=== PATIENT | female | born 1955 | race Caucasian/White ===

== ENCOUNTER 2018-05-07 15:10 | Outpatient (CLI) | payer BC ==
--- NOTE | 2018-05-07 15:39 | RAD ---
LEFT FEMUR: 05/07/18 AP and lateral views were obtained. A total of four images. INDICATIONS: Fall with injury to left lower extremity. There are degenerative changes at the hip. There is joint narrowing and mild spurring from the femora l head. No acute fracture identified. IMPRESSION: No acute fracture. POS: [facility]
--- NOTE | 2018-05-07 15:40 | RAD ---
F2 views left hip. HISTORY: Fall one month ago with left hip pain. AP and frog leg views left hip obtained. Left hip osteoarthritic changes seen. No evidence of acute fractures or bony lesions seen. IMPRESSION: Left hip osteoarthritis.
== END 2018-05-07 15:11 | disposition home or self-care (01) ==
LOC: SCSRAD 15:10
PROVIDERS: ATTEND Family Medicine
DX: M25.552 Pain in left hip (principal); M79.652 Pain in left thigh; M16.12 Unilateral primary osteoarthritis, left hip

== ENCOUNTER 2018-08-12 09:36 | Outpatient (CLI) | payer BC ==
--- NOTE | 2018-08-12 09:51 | RAD ---
RADIOGRAPH CHEST 2 VIEWS: DATE: 08/12/2018 HISTORY: 63-year-old female with dyspnea FINDINGS: There is no airspace density, pulmonary edema, pleural effusion, pneumothorax, or cardiomegaly. IMPRESSION: No acute cardiopulmonary findings.
== END 2018-08-12 09:37 | disposition home or self-care (01) ==
LOC: RAD 09:36
PROVIDERS: ATTEND Internal Medicine Critical Care Medicine
DX: R06.00 Dyspnea, unspecified (principal)
CPT/HCPCS: 71046

== ENCOUNTER 2018-08-18 15:00 | Outpatient (CLI) | payer BC | END 2018-08-18 15:01 | disposition home or self-care (01) | LOC: SLEEPLAB 15:00 | PROVIDERS: ATTEND Family Medicine | DX: F51.9 Sleep disorder not due to a substance or known physiological condition, unspecified (principal); G47.33 Obstructive sleep apnea (adult) (pediatric); G47.9 Sleep disorder, unspecified; R53.83 Other fatigue; K21.9 Gastro-esophageal reflux disease without esophagitis; J44.9 Chronic obstructive pulmonary disease, unspecified; E03.9 Hypothyroidism, unspecified; F32.9 Major depressive disorder, single episode, unspecified; R06.83 Snoring; G47.00 Insomnia, unspecified; R09.02 Hypoxemia; E66.9 Obesity, unspecified; Z68.37 Body mass index [BMI] 37.0-37.9, adult | CPT/HCPCS: 95806 ==

== ENCOUNTER 2019-04-16 07:50 | Outpatient (CLI) | payer MEDICARE ==
[2019-04-16 10:17] LABS: #Eosinphils 0.1 thou/uL (0.0-0.7); #Lymphocytes 1.9 thou/uL (1.20-3.40); #Neutrophils 4.8 thou/uL (1.40-6.50); %Basophils 0.4 % (0.0-1.0); %Eosinophils 1.2 % (0.0-10.0); %Lymphocytes 24.9 % (21.0-51.0); %Monocytes 12.1 % (0.0-10.0); %Neutrophils 61.4 % (42.0-75.0); Hemoglobin 13.7 g/dL (12.0-16.0); Mean Corpuscular HGB CONC 32.9 g/dL (32.0-36.0); Mean Corpuscular Volume 97.4 fL (78.0-98.0); Mean Platelet Volume 7.2 fL (7.4-10.4); Platelet Count 282 thou/uL (130-400); RBC Distribution Width 12.1 % (11.5-14.5); Red Blood Cell (RBC) Count 4.28 mill/uL (4.20-5.40); White Blood Cell (WBC) Count 7.8 thou/uL (4.8-10.8)
[2019-04-16 10:30] LABS: PTT 31.2 SEC (22.9-36.1); Prothrombin Time 12.9 SEC (12.0-14.7)
[2019-04-16 10:39] LABS: Anion Gap 10 mmol/L (10-20); BUN (Urea Nitrogen) 14 mg/dL (9.8-20.1); Calc. Creatinine Clearance 0 mL/min (70-130); Calcium 10.4 mg/dL (7.8-10.44); Carbon Dioxide 31 mmol/L (23-31); Chloride 102 mmol/L (98-107); Estimated GFR-MDRD Greater than 90; Glucose 89 mg/dL (80-115); Potassium 4.3 mmol/L (3.5-5.1); Sodium 139 mmol/L (136-145)
[2019-04-16 12:39] LABS: Bilirubin Negative (Negative); Blood, Urine Negative (Negative); Clarity Turbid (Clear); Glucose, Urine (Dipstick) Normal (Negative); Leukocyte Negative Leu/uL (Negative); Nitrite Negative (Negative); Protein, Urine (Dipstick) Negative (Neg-Trace); RBC/HPF 0-3 HPF (0-3); Squamous Epithelial 0-3 HPF (0-3); Urobilinogen Normal mg/dL (Less than 2); WBC/HPF 0-3 HPF (0-3)
[2019-04-16 12:51] LABS: Bacteria/HPF None Seen HPF (None Seen)
== END 2019-04-16 07:51 | disposition home or self-care (01) ==
LOC: LABBT 07:50
PROVIDERS: ATTEND Orthopaedic Surgery
DX: Z01.812 Encounter for preprocedural laboratory examination (principal); M16.12 Unilateral primary osteoarthritis, left hip
CPT/HCPCS: 80048; 81001; 85025; 85610; 85730; 87081

== ENCOUNTER 2019-04-16 08:30 | Inpatient (IN) | payer MEDICARE ==
--- NOTE | 2019-04-17 10:40 | HP ---
HISTORY OF PRESENT ILLNESS: The patient is a 63-year-old female who has had progressive problems with her left hip, which has been present for several years, but it has become much worse over the past 6 to 12 months. The pain has progressed to almost the point of incapacitation which required use of a wheelchair. This has also caused her to fall several times. It is interfering with day-to-day activities including walking, getting dressed, sleeping and trying to remain independent. PAST MEDICAL HISTORY: The patient also has degenerative arthritis of the right knee, which is currently managed conservatively. She has a history of thyroid replacement, hyperlipidemia, depression, previous neck surgery. CURRENT MEDICATIONS: Include 1. Ekaterina-C. 2. Multivitamins. 3. Calcium. 4. Omeprazole. 5. Spiriva inhaler. 6. Wellbutrin. 7. Synthroid. 8. Vytorin. 9. Meloxicam. 10. Tramadol. 11. Hydrocodone. ALLERGIES: TO CODEINE. SHE HAS OBTAINED CARDIAC CLEARANCE FROM DR. MARCIA MONTALVO. FAMILY HISTORY: Otherwise unremarkable. SOCIAL HISTORY: Otherwise unremarkable. REVIEW OF SYSTEMS: Otherwise unremarkable. PHYSICAL EXAMINATION: GENERAL: Reveals a healthy female. HEENT: Unremarkable. NECK: Supple. CHEST: Clear. HEART: Regular rate, rhythm. ABDOMEN: Soft, nontender. PELVIC: Deferred. RECTAL: Deferred. BREASTS: Deferred. EXTREMITIES: Pertinent findings related to the left hip. Left leg is 1 cm short. There is tenderness in the anterior left hip. There is decreased range of motion and groin pain with internal rotation. There is a left antalgic gait and currently she is a minimal ambulatory because of progressive pain. DIAGNOSTIC STUDIES: X-rays of the left hip reveal severe DJD and total collapse of the femoral head. X-rays of the right knee reveal moderately severe DJD with minimal joint space remaining. IMPRESSION: 1. Degenerative arthritis, left hip. 2. Degenerative arthritis, right knee. 3. History of hypertension. 4. Atherosclerotic cardiovascular disease. PLAN: Left total hip replacement. The nature of the surgery, length of recovery, and potential complications such as infection, loss of motion, incomplete relief, thromboembolic phenomena, neurovascular injury, leg-length discrepancy, possible transfusion, and need for revision have been discussed in detail. Job ID: [id number]
[2019-04-27] MEDS ORDERED: Tranexamic Acid 1,000 MG/10 ML VIAL ONE ×2 (09:12→17:00)
[2019-04-27] MEDS ORDERED: Sodium Chloride 0.9% 100 ML ONE ×2 (09:12→17:02)
[2019-04-27] MEDS ORDERED: Vancomycin 1.5 GRAM/300 ML BAG 1.5 GM in Premix Bag 1 BAG IVPB SCH ×2 (09:30→22:00)
[2019-04-27] MEDS ORDERED: Fentanyl 100 MCG/2 ML VIAL ONE ×6 (09:41→17:20)
[2019-04-27] MEDS ORDERED: EPHEDRINE 25 MG/5 ML SYRINGE ONE (09:55)
[2019-04-27] MEDS ORDERED: Dexamethasone 20 MG/5 ML VIAL ONE (09:55)
[2019-04-27] MEDS ORDERED: Lidocaine 1% PF 5 ML VIAL ONE (09:55)
[2019-04-27] MEDS ORDERED: Lidocaine 1.5% w/Epi 1:200K 30 ML VIAL (Epid Use) ONE (09:55)
[2019-04-27] MEDS ORDERED: Rocuronium Bromide 10 MG/ML (10ML VIAL) ONE (09:55)
[2019-04-27] MEDS ORDERED: Glycopyrrolate 0.2 MG/ML 5 ML SYRINGE ONE (09:55)
[2019-04-27] MEDS ORDERED: PROPOFOL 200 MG/20 ML VIAL ONE (09:55)
[2019-04-27] MEDS ORDERED: Vancomycin 1.5 GRAM/300 ML BAG 1.5 GM/300 ML BAG ONE (10:02)
[2019-04-27] MEDS ORDERED: Midazolam HCl 2 mg/2 ml Vial ONE (10:11)
[2019-04-27] MEDS ORDERED: Naloxone HCl 0.4 mg/ml Vial IV PRN (11:30)
[2019-04-27] MEDS ORDERED: Bupivacaine 0.25% 10 ML VIAL EPIDURAL PRN (11:30)
[2019-04-27] MEDS ORDERED: Hydrocerin (Eucerin) Cream 120 gm Jar TOP PRN (11:30)
[2019-04-27] MEDS ORDERED: traMADol HCl 50 MG TAB PO PRN ×2 (11:30→18:16)
[2019-04-27] MEDS ORDERED: Promethazine HCl 25 MG/ML VIAL IM PRN (11:30)
[2019-04-27] MEDS ORDERED: Promethazine HCl 25 MG SUPP PR PRN (11:30)
[2019-04-27] MEDS ORDERED: Ondansetron PF 4 MG/2 ML Vial IVP PRN ×2 (11:30→18:16)
[2019-04-27] MEDS ORDERED: Zolpidem Tartrate 5 MG TAB PO PRN ×2 (11:30→18:16)
[2019-04-27] MEDS ORDERED: diphenhydrAMINE 50 MG/ML VIAL IM PRN (11:30)
[2019-04-27] MEDS ORDERED: Naloxone HCl 0.4 mg/ml Vial IVP PRN (11:30)
[2019-04-27] MEDS ORDERED: diphenhydrAMINE 50 MG/ML VIAL IVP PRN (11:30)
[2019-04-27] MEDS ORDERED: HYDROcodone/Acetaminophen 5/325 mg Tablet PO PRN (11:30)
[2019-04-27] MEDS ORDERED: Ropivacaine 0.2% HCl/PF 20 ML ONE (13:58)
[2019-04-27] MEDS ORDERED: Tranexamic Acid 1,000 MG in Sodium Chloride 0.9% 100 ML IVPB SCH ×2 (16:15→18:16)
--- NOTE | 2019-04-27 16:40 | RAD ---
XR Hip Lt 2-3 View INDICATION: Postoperative left hip COMPARISON: Left hip radiograph dated May 07, 2018 FINDINGS: Bones: There is diffuse osteopenia. There are ossific fragment seen along the left pubic root and exp ected region of the medial wall of the left acetabulum. Hip joint: There is a medial projection of the left hip acetabular prosthetic component beyond the me dial wall of the acetabulum suspicious for possible protrusio deformity and medial acetabular wall fracture. The acetabular prosthetic component is also horizontally oriented in position. The femoral prosthesis projects in the expected position. There is scattered intra-articular and periarticular soft tissue gas. SI joints and symphysis pubis: Radiographically normal. Intrapelvic contents: Visualized bowel gas pattern is within normal limits. Surrounding soft tissues: Radiographically normal. IMPRESSION: 1. Left hip arthroplasty. Details were discussed with Dr. Martinez at 4:35 PM on 04/27/2019.
[2019-04-27] MEDS ORDERED: Promethazine HCl 25 MG/ML VIAL ONE (17:06)
--- NOTE | 2019-04-27 18:05 | OP ---
DATE OF PROCEDURE: 04/27/2019 SENIOR PROJECT LEADER/TEAM LEAD: Renae Trejo PA-C ANESTHESIA: General plus epidural. PREOPERATIVE DIAGNOSIS: Degenerative arthritis, left hip. POSTOPERATIVE DIAGNOSIS: Degenerative arthritis, left hip. PROCEDURE PERFORMED: Left total hip replacement with uncemented Zoe Tritanium acetabular component 54 mm with two acetabular screws, 30 mm and 25 mm with X3 polyethylene liner and uncemented Zoe Accolade II femoral component, size #4 with 132-degree neck angle trunnion and +5 mm 36 mm delta ceramic femoral head. OPERATIVE FINDINGS: There was marked degenerative arthritis of the hip and there has been a significant change since most recent x-rays. 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 This made getting fixation of the acetabular component difficult but I was able to manages with a Tritanium cup and two additional screws. Report of satisfactory anesthesia was induced in supine position, sequential compression devices were placed on the nonoperative leg throughout the procedure. The patient was then placed in the lateral decubitus position. This position held with a hip positioning device. The patient's left hip was then prepped in routine sterile fashion. The hip was approached through a lateral curvilinear incision over the greater trochanter, carried down the subcutaneous tissues and bleeding points were controlled with cautery. IT band and gluteal fascia were split with the skin incision. A direct lateral approach to the hip joint was accomplished by dividing the anterior third of the gluteus medius and minimus tendons with Bovie cautery reflecting this as a single flap anteriorly and medially along with the vastus lateralis. Anterior capsulectomy was performed and hip dislocated anteriorly. The above findings were noted. The femoral neck was osteotomized with an oscillating saw using a trial prosthesis as a guide. There was marked abundant scar tissue and inflammatory tissue about the acetabulum. The acetabulum was exposed and cleared of all soft tissue and debris and the above findings were noted. It was then reamed in sequence to a total of 53 mm. The rim osteophytes were removed. To get the acetabulum fit, I had to reamed up to the inner wall and there was a very thin rim superolaterally at the acetabulum which I broke off during the process which further compromised putting the cup in a press-fit fashion. I elected therefore to seat the cup more proximally in a more stable position. It was felt that a 54 mm Tritanium outer shell could be placed. This was hammered into position and then additional fixation obtained with two posterior superior screws after appropriate depth drilling of measurements. This appeared to give satisfactory stability to the outer shell. The permanent X3 polyethylene liner was then snapped in position and the proximal femur exposed. It was then opened with a box osteotome and then rasped in sequence to accept a #4 Accolade II femoral rasp. Trial reduction with 132-degree neck angle trunnion and the +5 mm neck length 36 mm femoral head gave appropriate size, fit, stability, and maintenance of leg length. The hip was again dislocated anteriorly and the trial components removed and the permanent #4 Accolade II femoral stem was then hammered in position. There was again good fit and stability of the component. The permanent +5 mm neck length 36 mm delta ceramic femoral head was then placed on the trunnion and the hip again reduced and found to be stable. The wound was thoroughly irrigated. The abductors were repaired with interrupted #2 Vicryl. The IT band and gluteal fascia were closed with interrupted #2 Vicryl and a running #2 Quill. Subcutaneous tissues were closed with interrupted 2-0 Vicryl in a running #2 Quill. The skin was closed with running subcuticular 3-0 Monoderm and SurgiSeal skin adhesive. A sterile dressing was applied. The patient turned to supine position and a pillow placed between her legs. Sequential compression devices applied to her operative leg and she was awakened and taken to the recovery room in stable condition. There were no apparent intraoperative complications. ESTIMATED BLOOD LOSS: 800 mL. She received no blood intraoperatively. Job ID: [id number]
[2019-04-27] MEDS ORDERED: diphenhydrAMINE 25 MG CAP PO PRN (18:16)
[2019-04-27] MEDS ORDERED: Fentanyl 100 MCG/2 ML VIAL SLOW IVP PRN ×4 (18:16→20:27)
[2019-04-27] MEDS ORDERED: HYDROcodone/Acetaminophen 10/325 mg Tablet PO PRN ×3 (18:16→20:41)
[2019-04-27] MEDS ORDERED: Vancomycin HCl 1.5 GM in Sodium Chloride 0.9% 250 ML 300 ML IVPB SCH (18:16)
[2019-04-27] MEDS ORDERED: Promethazine HCl 25 MG/ML VIAL SLOW IVP PRN (18:16)
[2019-04-27] MEDS ORDERED: Acetaminophen 325 MG TAB PO PRN (18:16)
[2019-04-27] MEDS ORDERED: TIOTROPIUM BROMIDE IH SCH (18:16)
--- NOTE | 2019-04-27 19:39 | PDOC.HOSPP ---
- Subjective Encounter Date: 04/27/19 Encounter Time: 19:30 Subjective: has some hoarseness and sob, no wheezing no pain in her hip no chest pain or palp - Objective Vital Signs & Weight: Vital Signs (12 hours) Pulse Resp Pulse Ox 04/27/19 19:21 119 H 18 94 L Weight Weight 230 lb Hospitalist ROS - Medication Medications: Active Medications Generic Name Dose Route Start Last Admin Trade Name Freq PRN Reason Stop Dose Admin Albuterol/Ipratropium 3 ml 04/27/19 18:45 04/27/19 19:21 Duoneb NEB 04/27/19 20:45 3 ml NOW SERVANDO Administration - Exam General Appearance: awake alert Eye: PERRL, anicteric sclera ENT: no oropharyngeal lesions, dry oral mucosa Neck: supple, no JVD Heart: RRR, no murmur Respiratory: no wheezes, no rales, rhonchi Gastrointestinal: soft, non-tender, non-distended, normal bowel sounds Extremities: no cyanosis, no edema Neurological: cranial nerve grossly intact, no focal deficits Psychiatric: normal affect, A&O x 3 Hosp A/P (1) Status post total hip replacement, left Code(s): Z96.642 - PRESENCE OF LEFT ARTIFICIAL HIP JOINT Status: Acute (2) Obesity (BMI 30-39.9) Code(s): E66.9 - OBESITY, UNSPECIFIED Status: Chronic (3) COPD (chronic obstructive pulmonary disease) Status: Chronic Qualifiers: COPD type: chronic bronchitis Chronic bronchitis type: unspecified Qualified Code(s): J42 - Unspecified chronic bronchitis (4) Tobacco abuse Code(s): Z72.0 - TOBACCO USE Status: Chronic (5) Hypothyroidism Code(s): E03.9 - HYPOTHYROIDISM, UNSPECIFIED Status: Chronic Qualifiers: Hypothyroidism type: unspecified Qualified Code(s): E03.9 - Hypothyroidism , unspecified (6) Depression Code(s): F32.9 - MAJOR DEPRESSIVE DISORDER, SINGLE EPISODE, UNSPECIFIED Status : Chronic Qualifiers: Depression Type: major depressive disorder - Plan doing well post op duonebs q6h, i.spirometry mobilize per ortho advice continue asp bid, vytorin, wellbutrin xl and synthroid is on marcaine, fentanyl prn, oral iron hemostable, will f/u
[2019-04-27] MEDS: Ketorolac Tromethamine 30 MG/ML VIAL IVP SCH ×3 (19:52→23:05)
[2019-04-27] MEDS: diphenhydrAMINE 25 MG CAP PO PRN (20:00)
[2019-04-27] MEDS ORDERED: Ferrous Gluconate 324 MG TAB PO SCH (20:30)
[2019-04-27] MEDS ORDERED: Bupropion 150 MG XL TAB PO SCH ×2 (20:30→20:45)
[2019-04-27] MEDS ORDERED: Aspirin Chewable 81 MG TAB PO SCH (20:30)
[2019-04-27] MEDS ORDERED: Senokot S 8.6-50 MG TAB PO SCH (20:45)
[2019-04-27] MEDS ORDERED: Multivitamin W/ Minerals 1 TAB PO SCH (20:45)
[2019-04-27] MEDS: CEFAZOLIN 2 GM in Premix Bag 1 BAG IVPB SCH (20:51)
[2019-04-27] MEDS ORDERED: Calcium Carbonate 600 MG + Vit D TAB PO SCH (21:00)
[2019-04-27] MEDS ORDERED: Ascorbic Acid 500 mg Chewable Tablet PO SCH (21:00)
[2019-04-27] MEDS: Simvastatin 20 MG TAB PO SCH (21:56)
[2019-04-27] MEDS: Ezetimibe 10 MG TAB PO SCH (21:56)
[2019-04-27] MEDS: Sodium Chloride 0.9% 1,000 ML IV SCH (22:15)
[2019-04-27 22:33] VITALS: BMI 34.0
[2019-04-27] MEDS ORDERED: Ketorolac Tromethamine 30 MG/ML VIAL IVP SCH (23:59)
[2019-04-28] MEDS: CEFAZOLIN 2 GM in Premix Bag 1 BAG IVPB SCH (04:21)
[2019-04-28 05:31] LABS: Hemoglobin 8.9 g/dL (12.0-16.0); Mean Corpuscular HGB CONC 33.6 g/dL (32.0-36.0); Mean Corpuscular Hemoglobin 32.3 pg (27.0-31.0); Mean Corpuscular Volume 96.2 fL (78.0-98.0); Mean Platelet Volume 7.4 fL (7.4-10.4); Platelet Count 210 thou/uL (130-400); RBC Distribution Width 11.8 % (11.5-14.5); Red Blood Cell (RBC) Count 2.76 mill/uL (4.20-5.40); White Blood Cell (WBC) Count 10.9 thou/uL (4.8-10.8)
[2019-04-28] MEDS: Ketorolac Tromethamine 30 MG/ML VIAL IVP SCH ×4 (06:15→23:45)
[2019-04-28] MEDS: Levothyroxine Sodium 100 MCG TAB PO SCH (06:15)
[2019-04-28] MEDS: Sodium Chloride 0.9% 1,000 ML IV SCH ×2 (06:51→16:21)
[2019-04-28] MEDS: Nicotine 21 MG PATCH TD SCH (08:15)
[2019-04-28] MEDS: Aspirin 81 mg Enteric Coated Tablet PO SCH ×2 (08:17→20:31)
[2019-04-28] MEDS: Multivitamin W/ Minerals 1 TAB PO SCH (08:17)
[2019-04-28] MEDS: Ascorbic Acid 500 mg Chewable Tablet PO SCH (08:17)
[2019-04-28] MEDS: Senokot S 8.6-50 MG TAB PO SCH ×2 (08:17→20:31)
[2019-04-28] MEDS: Calcium Carbonate 600 MG + Vit D TAB PO SCH (08:17)
[2019-04-28] MEDS: Bupropion 150 MG XL TAB PO SCH (08:17)
[2019-04-28] MEDS: Ferrous Gluconate 324 MG TAB PO SCH ×2 (08:18→17:32)
[2019-04-28] MEDS: fentaNYL Citrate/PF 500 MCG, Bupivacaine 10 ML in Sodium Chloride 0.9% 80 ML EPIDURAL SCH (08:34)
[2019-04-28] MEDS ORDERED: CHOLECALCIFEROL 1250 MCG PO SCH (09:00)
[2019-04-28] MEDS: diphenhydrAMINE 25 MG CAP PO PRN ×2 (11:22→15:24)
--- NOTE | 2019-04-28 12:20 | PDOC.HOSPP ---
- Subjective Encounter Date: 04/28/19 Encounter Time: 08:30 Subjective: pain is better no chest pain or sob still has hoarseness is pulling well with her i.spirometer - Objective Vital Signs & Weight: Vital Signs (12 hours) Temp Pulse Resp BP Pulse Ox 04/28/19 07:31 98.4 F 99 16 100/58 L 94 L 04/28/19 06:59 99 04/28/19 06:56 99 15 99 04/28/19 04:21 98 F 100 20 101/62 94 L 04/28/19 03:22 96 Weight Weight 217 lb 1.6 oz I&O: 04/27/19 04/28/19 04/29/19 06:59 06:59 06:59 Intake Total 2210 240 Output Total 775 Balance 1435 240 Result Diagrams: 04/28/19 05:13 Hospitalist ROS - Medication Medications: Active Medications Generic Name Dose Route Start Last Admin Trade Name Freq PRN Reason Stop Dose Admin Albuterol/Ipratropium 3 ml 04/28/19 01:00 04/28/19 06:56 Duoneb NEB 3 ml [id number] SERVANDO Administration Ascorbic Acid 1,000 mg 04/28/19 09:00 04/28/19 08:17 Vitamin C PO 1,000 mg DAILY SERVANDO Administration Aspirin 81 mg 04/28/19 09:00 04/28/19 08:17 Ecotrin PO 81 mg BID SERVANDO Administration Bupropion HCl 150 mg 04/28/19 09:00 04/28/19 08:17 Wellbutrin Xl PO 150 mg QAM SERVANDO Administration Calcium/Vitamin D 1 tab 04/28/19 09:00 04/28/19 08:17 Caltrate 600 + Vit D PO 1 tab DAILY SERVANDO Administration Cholecalciferol 5,000 units 04/28/19 09:00 04/28/19 08:16 Vitamin D3 PO 5,000 units DAILY SERVANDO Administration Diphenhydramine HCl 25 mg 04/27/19 11:30 04/28/19 11:22 Benadryl PO 25 mg Q3H PRN Administration Itching Ezetimibe 10 mg 04/27/19 21:00 04/27/19 21:56 Zetia PO 10 mg HS SERVANDO Administration Ferrous Gluconate 324 mg 04/28/19 08:00 04/28/19 08:18 Fergon PO 324 mg BID-WM SERVANDO Administration Fentanyl Citrate 500 mcg/ 100 mls @ 6 mls/hr 04/27/19 11:30 04/28/19 08:34 Bupivacaine HCl 10 ml/ Sodium EPIDURAL 100 mls Chloride INF SERVANDO Administration Sodium Chloride 1,000 mls @ 100 mls/hr 04/27/19 20:30 04/28/19 06:51 Normal Saline 0.9% IV Not Given .Q10H SERVANDO Iron/Minerals/Multivitamins 1 tab 04/28/19 09:00 04/28/19 08:17 Theragran M PO 1 tab DAILY SERVANDO Administration Ketorolac Tromethamine 30 mg 04/27/19 12:00 04/28/19 11:21 Toradol IVP 04/29/19 06:01 30 mg Q6HR SERVANDO Administration Levothyroxine Sodium 200 mcg 04/28/19 06:00 04/28/19 06:15 Synthroid PO 200 mcg 0600 SERVANDO Administration Nicotine 21 mg 04/28/19 09:00 04/28/19 08:15 Nicoderm Patch TD 21 mg DAILY SERVANDO Administration Senna/Docusate Sodium 2 tab 04/28/19 09:00 04/28/19 08:17 Senokot S PO 2 tab BID SERVANDO Administration Simvastatin 20 mg 04/27/19 21:00 04/27/19 21:56 Zocor PO 20 mg HS SERVANDO Administration - Exam General Appearance: awake alert Eye: PERRL, anicteric sclera ENT: no oropharyngeal lesions, moist mucosa Neck: supple, no JVD Heart: RRR, no murmur Respiratory: no wheezes, no rales, rhonchi Gastrointestinal: soft, non-tender, non-distended, normal bowel sounds Extremities: no cyanosis, no edema Neurological: cranial nerve grossly intact, no focal deficits Psychiatric: normal affect, A&O x 3 Hosp A/P (1) Status post total hip replacement, left Code(s): Z96.642 - PRESENCE OF LEFT ARTIFICIAL HIP JOINT Status: Acute (2) Obesity (BMI 30-39.9) Code(s): E66.9 - OBESITY, UNSPECIFIED Status: Chronic (3) COPD (chronic obstructive pulmonary disease) Status: Chronic Qualifiers: COPD type: chronic bronchitis Chronic bronchitis type: unspecified Qualified Code(s): J42 - Unspecified chronic bronchitis (4) Tobacco abuse Code(s): Z72.0 - TOBACCO USE Status: Chronic (5) Hypothyroidism Code(s): E03.9 - HYPOTHYROIDISM, UNSPECIFIED Status: Chronic Qualifiers: Hypothyroidism type: unspecified Qualified Code(s): E03.9 - Hypothyroidism , unspecified (6) Depression Code(s): F32.9 - MAJOR DEPRESSIVE DISORDER, SINGLE EPISODE, UNSPECIFIED Status : Chronic Qualifiers: Depression Type: major depressive disorder (7) Postoperative anemia Code(s): D64.9 - ANEMIA, UNSPECIFIED Status: Acute - Plan doing well post op duonebs q6h, i.spirometry, oral iron mobilize per ortho advice continue asp bid, vytorin, wellbutrin xl and synthroid is on marcaine, fentanyl prn, oral iron hemostable, will f/u
[2019-04-28] MEDS: HYDROcodone/Acetaminophen 5/325 mg Tablet PO PRN (18:13)
[2019-04-28] MEDS: Ezetimibe 10 MG TAB PO SCH (20:31)
[2019-04-28] MEDS: Simvastatin 20 MG TAB PO SCH (20:31)
[2019-04-29] MEDS: fentaNYL Citrate/PF 500 MCG, Bupivacaine 10 ML in Sodium Chloride 0.9% 80 ML EPIDURAL SCH (02:02)
[2019-04-29] MEDS: Sodium Chloride 0.9% 1,000 ML IV SCH ×3 (03:15→22:35)
[2019-04-29] MEDS: Ketorolac Tromethamine 30 MG/ML VIAL IVP SCH (05:49)
[2019-04-29] MEDS: Levothyroxine Sodium 100 MCG TAB PO SCH (05:50)
[2019-04-29 06:03] LABS: Hemoglobin 7.9 g/dL (12.0-16.0); Mean Corpuscular HGB CONC 34.2 g/dL (32.0-36.0); Mean Corpuscular Hemoglobin 32.8 pg (27.0-31.0); Mean Corpuscular Volume 96.1 fL (78.0-98.0); Mean Platelet Volume 7.5 fL (7.4-10.4); Platelet Count 195 thou/uL (130-400); RBC Distribution Width 11.8 % (11.5-14.5); White Blood Cell (WBC) Count 13.3 thou/uL (4.8-10.8)
[2019-04-29] MEDS: Bupropion 150 MG XL TAB PO SCH (09:25)
[2019-04-29] MEDS: Nicotine 21 MG PATCH TD SCH (09:25)
[2019-04-29] MEDS: Senokot S 8.6-50 MG TAB PO SCH ×2 (09:29→20:41)
[2019-04-29] MEDS: Ferrous Gluconate 324 MG TAB PO SCH ×2 (09:29→16:25)
[2019-04-29] MEDS: Ascorbic Acid 500 mg Chewable Tablet PO SCH (09:29)
[2019-04-29] MEDS: Calcium Carbonate 600 MG + Vit D TAB PO SCH (09:30)
[2019-04-29] MEDS: Multivitamin W/ Minerals 1 TAB PO SCH (09:30)
[2019-04-29] MEDS: Aspirin 81 mg Enteric Coated Tablet PO SCH ×2 (09:30→20:42)
[2019-04-29] MEDS: HYDROcodone/Acetaminophen 5/325 mg Tablet PO PRN (11:03)
[2019-04-29] MEDS ORDERED: Ketorolac Tromethamine 30 MG/ML VIAL IVP SCH (12:00)
[2019-04-29] MEDS ORDERED: Bupivacaine 10 ML in Sodium Chloride 0.9% 90 ML EPIDURAL SCH (13:15)
--- NOTE | 2019-04-29 13:46 | PDOC.HOSPP ---
- Subjective Encounter Date: 04/29/19 Encounter Time: 08:30 Subjective: has not ambulated yet no chest pain or palp breathing well, hoarseness is better, no trouble swallowing - Objective Vital Signs & Weight: Vital Signs (12 hours) Temp Pulse Resp BP BP Pulse Ox 04/29/19 13:21 104 H 20 97 04/29/19 11:00 98.6 F 100 16 97/62 92 L 04/29/19 09:49 111/67 04/29/19 07:40 98.9 F 96 16 111/69 98 04/29/19 07:36 98 14 99 04/29/19 03:26 98.3 F 104 H 18 113/61 93 L Weight Admit Weight 217 lb 1.6 oz Weight 217 lb 1.6 oz I&O: 04/28/19 04/29/19 04/30/19 06:59 06:59 06:59 Intake Total 2210 1560 240 Output Total 775 650 Balance 1435 910 240 Result Diagrams: 04/29/19 05:22 Hospitalist ROS - Medication Medications: Active Medications Generic Name Dose Route Start Last Admin Trade Name Freq PRN Reason Stop Dose Admin Acetaminophen 650 mg 04/27/19 18:16 04/29/19 11:04 Tylenol PO 650 mg Q4H PRN Administration Headache/Fever or Pain Hydrocodone Bitart/Acetaminophen 2 tab 04/27/19 11:30 04/29/19 11:03 Ranson 5/325 PO 2 tab Q4H PRN Administration For Moderate Pain 4-6 Albuterol/Ipratropium 3 ml 04/28/19 01:00 04/29/19 13:21 Duoneb NEB 3 ml [id number] SERVANDO Administration Ascorbic Acid 1,000 mg 04/28/19 09:00 04/29/19 09:29 Vitamin C PO 1,000 mg DAILY SERVANDO Administration Aspirin 81 mg 04/28/19 09:00 04/29/19 09:30 Ecotrin PO 81 mg BID SERVANDO Administration Bupropion HCl 150 mg 04/28/19 09:00 04/29/19 09:25 Wellbutrin Xl PO 150 mg QAM SERVANDO Administration Calcium/Vitamin D 1 tab 04/28/19 09:00 04/29/19 09:30 Caltrate 600 + Vit D PO 1 tab DAILY SERVANDO Administration Cholecalciferol 5,000 units 04/28/19 09:00 04/29/19 09:25 Vitamin D3 PO 5,000 units DAILY SERVANDO Administration Diphenhydramine HCl 25 mg 04/27/19 11:30 04/28/19 15:24 Benadryl PO 25 mg Q3H PRN Administration Itching Ezetimibe 10 mg 04/27/19 21:00 04/28/19 20:31 Zetia PO 10 mg HS SERVANDO Administration Ferrous Gluconate 324 mg 04/28/19 08:00 04/29/19 09:29 Fergon PO 324 mg BID-WM SERVANDO Administration Fentanyl Citrate 500 mcg/ 100 mls @ 6 mls/hr 04/27/19 11:30 04/29/19 02:02 Bupivacaine HCl 10 ml/ Sodium EPIDURAL 100 mls Chloride INF SERVANDO Administration Sodium Chloride 1,000 mls @ 100 mls/hr 04/27/19 20:30 04/29/19 11:44 Normal Saline 0.9% IV Not Given .Q10H SERVANDO Iron/Minerals/Multivitamins 1 tab 04/28/19 09:00 04/29/19 09:30 Theragran M PO 1 tab DAILY SERVANDO Administration Levothyroxine Sodium 200 mcg 04/28/19 06:00 04/29/19 05:50 Synthroid PO 200 mcg 0600 SERVANDO Administration Nicotine 21 mg 04/28/19 09:00 04/29/19 09:25 Nicoderm Patch TD 21 mg DAILY SERVANDO Administration Senna/Docusate Sodium 2 tab 04/28/19 09:00 04/29/19 09:29 Senokot S PO 2 tab BID SERVANDO Administration Simvastatin 20 mg 04/27/19 21:00 04/28/19 20:31 Zocor PO 20 mg HS SERVANDO Administration - Exam General Appearance: awake alert Eye: PERRL, anicteric sclera ENT: no oropharyngeal lesions, moist mucosa Neck: supple, no JVD Heart: no murmur, no gallops Respiratory: no wheezes, no rales, rhonchi Gastrointestinal: soft, non-tender, non-distended, normal bowel sounds Extremities: no cyanosis, no edema Neurological: cranial nerve grossly intact, no focal deficits Psychiatric: normal affect, A&O x 3 Hosp A/P (1) Status post total hip replacement, left Code(s): Z96.642 - PRESENCE OF LEFT ARTIFICIAL HIP JOINT Status: Acute (2) Obesity (BMI 30-39.9) Code(s): E66.9 - OBESITY, UNSPECIFIED Status: Chronic (3) COPD (chronic obstructive pulmonary disease) Status: Chronic Qualifiers: COPD type: chronic bronchitis Chronic bronchitis type: unspecified Qualified Code(s): J42 - Unspecified chronic bronchitis (4) Tobacco abuse Code(s): Z72.0 - TOBACCO USE Status: Chronic (5) Hypothyroidism Code(s): E03.9 - HYPOTHYROIDISM, UNSPECIFIED Status: Chronic Qualifiers: Hypothyroidism type: unspecified Qualified Code(s): E03.9 - Hypothyroidism , unspecified (6) Depression Code(s): F32.9 - MAJOR DEPRESSIVE DISORDER, SINGLE EPISODE, UNSPECIFIED Status : Chronic Qualifiers: Depression Type: major depressive disorder (7) Postoperative anemia Code(s): D64.9 - ANEMIA, UNSPECIFIED Status: Acute - Plan counselled to ambulate today, will likely need placement. ollie q6h, i.spirometry, oral iron mobilize per ortho advice continue asp bid, vytorin, wellbutrin xl and synthroid is on marcaine, fentanyl prn, oral iron hemostable, will f/u
[2019-04-29] MEDS: Simvastatin 20 MG TAB PO SCH (20:42)
[2019-04-29] MEDS: Ezetimibe 10 MG TAB PO SCH (20:42)
[2019-04-30] MEDS: Levothyroxine Sodium 100 MCG TAB PO SCH (05:16)
[2019-04-30 05:34] LABS: Hemoglobin 7.7 g/dL (12.0-16.0); Mean Corpuscular HGB CONC 33.1 g/dL (32.0-36.0); Mean Corpuscular Hemoglobin 31.9 pg (27.0-31.0); Mean Corpuscular Volume 96.4 fL (78.0-98.0); Mean Platelet Volume 7.7 fL (7.4-10.4); Platelet Count 219 thou/uL (130-400); Red Blood Cell (RBC) Count 2.42 mill/uL (4.20-5.40); White Blood Cell (WBC) Count 12.9 thou/uL (4.8-10.8)
[2019-04-30] MEDS: Ferrous Gluconate 324 MG TAB PO SCH ×2 (10:03→18:04)
[2019-04-30] MEDS: Calcium Carbonate 600 MG + Vit D TAB PO SCH (10:04)
[2019-04-30] MEDS: Multivitamin W/ Minerals 1 TAB PO SCH (10:04)
[2019-04-30] MEDS: Ascorbic Acid 500 mg Chewable Tablet PO SCH (10:04)
[2019-04-30] MEDS: HYDROcodone/Acetaminophen 5/325 mg Tablet PO PRN (10:04)
[2019-04-30] MEDS: Aspirin 81 mg Enteric Coated Tablet PO SCH (10:04)
[2019-04-30] MEDS: Bupropion 150 MG XL TAB PO SCH (10:04)
[2019-04-30] MEDS: Nicotine 21 MG PATCH TD SCH (10:05)
[2019-04-30] MEDS: Sodium Chloride 0.9% 1,000 ML IV SCH ×2 (10:05→18:38)
[2019-04-30] MEDS ORDERED: Iron, Sodium Ferric Gluconate 250 MG in Sodium Chloride 0.9% 250 ML 250 ML IVPB SCH (10:30)
--- NOTE | 2019-04-30 11:20 | PDOC.HOSPP ---
- Subjective Encounter Date: 04/30/19 Encounter Time: 09:45 Subjective: Patient seen and examined for med mngt. Had watery diarrhea last night. No CP/ SOB/fever/Abd pain/N/V. No other complaints. No overnight events - Objective Vital Signs & Weight: Vital Signs (12 hours) Temp Pulse Resp BP Pulse Ox 04/30/19 07:35 98.5 F 103 H 16 123/73 99 04/30/19 07:34 90 L 04/30/19 07:32 105 H 20 90 L 04/30/19 03:40 95 04/30/19 03:24 98.1 F 108 H 16 118/68 89 L 04/29/19 23:21 98.2 F 106 H 16 103/62 90 L Weight Admit Weight 217 lb 1.6 oz Weight 217 lb 1.6 oz I&O: 04/29/19 04/30/19 05/01/19 06:59 06:59 06:59 Intake Total 1560 1560 Output Total 650 1225 Balance 910 335 Result Diagrams: 04/30/19 05:07 Hospitalist ROS - Review of Systems Respiratory: denies: cough, dry, shortness of breath, hemoptysis, SOB with excertion, pleuritic pain, sputum, wheezing, other Cardiovascular: denies: chest pain, palpitations, orthopnea, paroxysmal noc. dyspnea, edema, light headedness, other - Medication Medications: Active Medications Generic Name Dose Route Start Last Admin Trade Name Freq PRN Reason Stop Dose Admin Acetaminophen 650 mg 04/27/19 18:16 04/29/19 11:04 Tylenol PO 650 mg Q4H PRN Administration Headache/Fever or Pain Hydrocodone Bitart/Acetaminophen 1 tab 04/27/19 11:30 04/30/19 00:39 Waller 5/325 PO 1 tab Q4H PRN Administration Mild Pain 1-3 Hydrocodone Bitart/Acetaminophen 2 tab 04/27/19 11:30 04/29/19 11:03 Waller 5/325 PO 2 tab Q4H PRN Administration For Moderate Pain 4-6 Albuterol/Ipratropium 3 ml 04/28/19 01:00 04/30/19 07:32 Duoneb NEB 3 ml [id number] SERVANDO Administration Ascorbic Acid 1,000 mg 04/28/19 09:00 04/30/19 10:04 Vitamin C PO 1,000 mg DAILY SERVANDO Administration Aspirin 81 mg 04/28/19 09:00 04/30/19 10:04 Ecotrin PO 81 mg BID SERVANDO Administration Bupropion HCl 150 mg 04/28/19 09:00 04/30/19 10:04 Wellbutrin Xl PO 150 mg QAM SERVANDO Administration Calcium/Vitamin D 1 tab 04/28/19 09:00 04/30/19 10:04 Caltrate 600 + Vit D PO 1 tab DAILY SERVANDO Administration Cholecalciferol 5,000 units 04/28/19 09:00 04/30/19 10:04 Vitamin D3 PO 5,000 units DAILY SERVANDO Administration Diphenhydramine HCl 25 mg 04/27/19 11:30 04/28/19 15:24 Benadryl PO 25 mg Q3H PRN Administration Itching Ezetimibe 10 mg 04/27/19 21:00 04/29/19 20:42 Zetia PO 10 mg HS SERVANDO Administration Ferrous Gluconate 324 mg 04/28/19 08:00 04/30/19 10:03 Fergon PO 324 mg BID-WM SERVANDO Administration Sodium Chloride 1,000 mls @ 100 mls/hr 04/27/19 20:30 04/30/19 10:05 Normal Saline 0.9% IV Not Given .Q10H SERVANDO Iron/Minerals/Multivitamins 1 tab 04/28/19 09:00 04/30/19 10:04 Theragran M PO 1 tab DAILY SERVANDO Administration Levothyroxine Sodium 200 mcg 04/28/19 06:00 04/30/19 05:16 Synthroid PO 200 mcg 0600 SERVANDO Administration Nicotine 21 mg 04/28/19 09:00 04/30/19 10:05 Nicoderm Patch TD 21 mg DAILY SERVANDO Administration Simvastatin 20 mg 04/27/19 21:00 04/29/19 20:42 Zocor PO 20 mg HS SERVANDO Administration - Exam General - other findings: Mild distress due to hip pain Heart: RRR, no gallops Respiratory: no wheezes, no ronchi Gastrointestinal: non-tender, non-distended, normal bowel sounds Extremities: no cyanosis Neurological: no new deficit Hosp A/P - Plan DVT proph w/SCDs Anemia HTN Tobacco dep COPD Hypothyroidism Anxiety HLD Obesity BMI 34 PLAN: Start IV iron Sen-S dced Cont Levothyroxine Cont Nebs Cont Nicotin replacement Cont to monitor HH in AM
[2019-04-30] MEDS: traMADol HCl 50 MG TAB PO PRN ×2 (11:54→18:30)
[2019-04-30] MEDS: Loperamide HCl 2 MG CAP PO PRN ×2 (11:56→18:30)
--- NOTE | 2019-04-30 13:55 | RAD ---
Exam: Left hip 2 views: HISTORY: Postoperative pain FINDINGS: Very abnormal position of the acetabular portion of the prosthesis. It has a very flattened appearanc e and has moved medially between 1 1/2 and 2 cm from the previous abnormal positioning of 04/27/2019. There is evidence for multiple fractures in the periacetabular region. The femoral portion of the prosthesis appears intact. IMPRESSION: Very markedly malaligned acetabular portion of the prosthesis which is moved considerably medially fr om the most recent study of 04/27/2019 with multiple periprostatic fractures around the region of the acetabulum. Dr. Martinez has previously been made aware of this abnormal appearance.
[2019-04-30] MEDS ORDERED: CEFAZOLIN 2 GM in Premix Bag 1 BAG IVPB SCH (18:00)
[2019-04-30] MEDS ORDERED: Vancomycin 1.5 GRAM/300 ML BAG 1.5 GM in Premix Bag 1 BAG IVPB SCH (18:00)
--- NOTE | 2019-04-30 19:43 | CT ---
CT PELVIS: 04/30/19 INDICATIONS: Postop left hip arthroplasty. Recent postop films show deformity of the left hip with abnormal posit ioning of the left acetabular component. CT confirms plain film findings of protrusio deformity of the acetabular component with fracture of t he medial wall of the acetabulum. Abnormal orientation of the acetabular component is noted on plain film. There are comminuted fractures involving the superior left ischial ramus at each base and fract ures of the medial wall of the acetabulum. Soft tissue windows show fluid and gas density lateral to the femoral component at the greater trocha nter probably representing a postop hematoma. The presence of gas pockets within this collection; how ever, raises the possibility of abscess collection. IMPRESSION: 1. Abnormal positioning of the left acetabular component with associated fractures of the left a cetabulum and superior ischial ramus. 2. Focal fluid collection in the anterolateral soft tissues of the proximal femur just inferior to the greater trochanter. The presence of tiny gas pockets within this collection raises the possibi lity of postop abscess collection. POS: ALBINA
[2019-04-30] MEDS: Cyanocobalamin (Vitamin B-12) 1,000 MCG TAB PO SCH (20:44)
[2019-04-30] MEDS: Ezetimibe 10 MG TAB PO SCH (20:44)
[2019-04-30] MEDS: Simvastatin 20 MG TAB PO SCH (20:45)
[2019-04-30] MEDS: Folic Acid 1 MG TAB PO SCH (20:45)
[2019-04-30] MEDS ORDERED: Multivit, Therapeutic 1 TAB PO SCH (21:00)
[2019-05-01 05:28] LABS: Hemoglobin 9.8 g/dL (12.0-16.0)
[2019-05-01] MEDS: Levothyroxine Sodium 100 MCG TAB PO SCH (06:01)
[2019-05-01] MEDS: Sodium Chloride 0.9% 1,000 ML IV SCH ×2 (08:42→13:59)
[2019-05-01] MEDS ORDERED: Iron Sucrose Complex 200 MG in Sodium Chloride 0.9% 250 ML 250 ML IVPB SCH (09:00)
[2019-05-01] MEDS: Ascorbic Acid 500 mg Chewable Tablet PO SCH (09:09)
[2019-05-01] MEDS: Multivitamin W/ Minerals 1 TAB PO SCH (09:09)
[2019-05-01] MEDS: Bupropion 150 MG XL TAB PO SCH (09:09)
[2019-05-01] MEDS: Ferrous Gluconate 324 MG TAB PO SCH ×2 (09:09→17:02)
[2019-05-01] MEDS: Calcium Carbonate 600 MG + Vit D TAB PO SCH (09:09)
[2019-05-01] MEDS: Iron, Sodium Ferric Gluconate 250 MG in Sodium Chloride 0.9% 100 ML IVPB SCH ×2 (09:14→16:17)
[2019-05-01] MEDS ORDERED: diphenhydrAMINE 25 MG CAP ONE (09:50)
[2019-05-01] MEDS ORDERED: Vancomycin 1.5 GRAM/300 ML BAG 1.5 GM/300 ML BAG ONE (09:50)
[2019-05-01] MEDS ORDERED: Phenylephrine 10 MG/ML VIAL ONE (10:55)
[2019-05-01] MEDS ORDERED: Sodium Chloride 0.9% 100 ML ONE ×2 (11:09→17:29)
[2019-05-01] MEDS ORDERED: Fentanyl 100 MCG/2 ML VIAL ONE ×4 (11:09→17:25)
[2019-05-01] MEDS ORDERED: Tranexamic Acid 1,000 MG/10 ML VIAL ONE ×2 (11:09→17:28)
[2019-05-01] MEDS ORDERED: PROPOFOL 200 MG/20 ML VIAL ONE (12:47)
[2019-05-01] MEDS ORDERED: Glycopyrrolate 0.2 MG/ML 5 ML SYRINGE ONE (12:47)
[2019-05-01] MEDS ORDERED: Metoclopramide HCl 10 MG/2 ML VIAL ONE (12:47)
[2019-05-01] MEDS ORDERED: EPHEDRINE 25 MG/5 ML SYRINGE ONE (12:47)
[2019-05-01] MEDS ORDERED: Ondansetron PF 4 MG/2 ML Vial ONE (12:47)
[2019-05-01] MEDS ORDERED: Vecuronium 10 MG VIAL ONE (12:47)
[2019-05-01] MEDS ORDERED: Rocuronium Bromide 10 MG/ML (10ML VIAL) ONE (12:47)
[2019-05-01] MEDS ORDERED: Lidocaine 1% PF 5 ML VIAL ONE (12:47)
[2019-05-01] MEDS ORDERED: PHENYLEPHRINE-NS 100 MCG/ML 10 ML SYRINGE ONE (12:47)
[2019-05-01] MEDS ORDERED: Albumin 5% 500 ML ONE (13:04)
[2019-05-01] MEDS ORDERED: Albumin 25% 100 ML ONE (14:04)
[2019-05-01] MEDS ORDERED: SUGAMMADEX SODIUM 500 MG/5 ML VIAL ONE (15:31)
[2019-05-01] MEDS: Nicotine 21 MG PATCH TD SCH (16:17)
[2019-05-01] MEDS ORDERED: Tranexamic Acid 1,000 MG in Sodium Chloride 0.9% 100 ML IVPB SCH (17:15)
[2019-05-01] MEDS ORDERED: Promethazine HCl 25 MG/ML VIAL IM PRN (17:35)
[2019-05-01] MEDS ORDERED: diphenhydrAMINE 50 MG/ML VIAL IM PRN (17:35)
[2019-05-01] MEDS ORDERED: diphenhydrAMINE 25 MG CAP PO PRN (17:35)
[2019-05-01] MEDS ORDERED: diphenhydrAMINE 50 MG/ML VIAL IVP PRN (17:35)
[2019-05-01] MEDS ORDERED: Ondansetron PF 4 MG/2 ML Vial IVP PRN (17:35)
[2019-05-01] MEDS ORDERED: Zolpidem Tartrate 5 MG TAB PO PRN (17:35)
[2019-05-01] MEDS ORDERED: Naloxone HCl 0.4 mg/ml Vial IV PRN (17:35)
[2019-05-01] MEDS ORDERED: Communication Order-Pharmacy FS SCH (17:45)
[2019-05-01] MEDS ORDERED: CEFAZOLIN 2 GM in Premix Bag 1 BAG IVPB SCH (18:00)
--- NOTE | 2019-05-01 18:19 | RAD ---
EXAM: 2 views of the left hip HISTORY: Postoperative left hip arthroplasty revision COMPARISON: 04/30/2019 FINDINGS: An acetabular component is seen which has a better position than the prior exam. A plate an d screws is seen spanning the comminuted fracture of the left aspect of the pelvis. The femoral portion of prosthesis is not seated within the acetabular component at this time. The soft tissues and overlying leodan are from recent surgery. IMPRESSION: Postsurgical changes of the left hip as above with incomplete seating of the femoral comp onent of the prosthesis within the acetabular component.
[2019-05-01 18:20] LABS: Hemoglobin 9.3 g/dL (12.0-16.0)
--- NOTE | 2019-05-01 19:04 | OP ---
DATE OF PROCEDURE: 05/01/2019 ASSISTANTS: Kavon Heard MD and Eliseo Kc MD ANESTHESIA: General. PREOPERATIVE DIAGNOSIS: Fracture of pelvis with migration of the acetabular component, status post left total hip replacement. POSTOPERATIVE DIAGNOSIS: Fracture of pelvis with migration of the acetabular component, status post left total hip replacement. PROCEDURES PERFORMED: Open reduction and internal fixation of pelvis and revision of total hip replacement with Andria Trabecular Metal Acetabular system Cup Cage construct and Gwendolyn 28mm standard neck length metal femoral head DESCRIPTION OF PROCEDURE: After satisfactory anesthesia was induced in supine position, sequential compression device was placed on the nonoperative leg throughout the procedure. The patient was then placed in the lateral decubitus position and this position held with hip positioning device. The patient was then prepped and draped in routine sterile fashion. The hip was approached through the previous incision. This was extended somewhat proximally. This was carried down through subcutaneous tissue. Bleeding points were controlled with Bovie cautery. Previous sutures were removed. The IT band was reopened, and the abductors were detached. The joint was exposed. The hip dislocated anteriorly and the previous femoral component removed after using the insertion device without too much difficulty. The acetabulum was exposed. It was mobile. There was loss of the inner wall of the acetabulum and fracture of the posterior rim, which was comminuted and had a butterfly fragment. There was marked osteoporosis present. The acetabulum was removed. The hip was then placed in the posterior position. Dr. Heard exposed the hip posteriorly to expose the posterior wall. Care was taken to avoid injury to the sciatic nerve. The posterior acetabulum down to the ischium was exposed, and a 10-hole Synthes pelvic reconstruction plate was then contoured to the posterior wall incorporating the fracture, and screws were placed proximally and distally after appropriate drilling and depth gauge measurements. This appeared to give acceptable fixation of the fracture, which was documented with image intensifier. Hip was then exposed anteriorly again, and the above findings were noted. Wound was thoroughly irrigated. An allograft femoral head was prepared , and morcellized bone graft was obtained from the neck and medullary portion of the femoral head. Remaining cone portion of femoral head was used to fill the defect centrally and then the Remaining defect filled with morcellized bone graft. Trial reduction with a 56 mm Andria outer shell appropriately sized and fitted, and then the 56 mm trabecular metal outer shell was hammered in position. I attempted to put some holes in the bone, but bone was so soft and none of the screws gave satisfactory purchase of any screw. The 56 mm cage 5-hole was then contoured into the trabecular shell and fixed with 4 screws proximal to the acetabulum after appropriate drilling and depth gauge measurements. This appeared to give acceptable position. A 48 mm with 28 mm inside diameter acetabular liner was then cemented inside this construct, building up cement around the component to provide stability. Excess cement was removed. Two packages of cement each with 1 g of tobramycin powder was used. After the cement had cured, there appeared to be satisfactory stability and alignment of the acetabular component. A #4 Accolade II femoral rasp was then hammered back into the proximal femur and trial reduction with the standard neck length 28 mm femoral head gave appropriate stability and maintenance of leg length. The hip was again dislocated. The wound was thoroughly irrigated. The original #4 Accolade II femoral stem was then hammered back in position. There was good fit and stability. The permanent 28 mm standard neck length metal femoral head was then placed on the trunnion, this was [place] femoral head. The hip was again reduced, found to be stable. The wound was thoroughly irrigated. The posterior capsule and external rotators were repaired through drill holes with heavy Ethibond suture. The abductors were repaired with interrupted #2 Vicryl. 0.5 g of tobramycin powder was sprinkled in the wound deep to the IT band. The IT band was then closed with interrupted #2 Vicryl. Another 0.5 g of tobramycin powder was sprinkled in the subcutaneous tissues, and the IT band was closed with interrupted #2 Vicryl. The subcutaneous tissue was closed with Interrupted 2-0 Vicryl, and the skin was closed with a staple gun. Sterile dressing was applied. The patient was turned to supine position, and a pillow placed between her legs. Sequential compression devices were applied to her operative leg, and she was awakened and taken to the recovery room in stable condition. There were no apparent intraoperative complications. The estimated blood loss was 1000 mL. Received 2 units of packed cells intraoperatively. Job ID: [id number] [facility]
--- NOTE | 2019-05-01 19:30 | PDOC.EVN ---
Event Note - Event Note Event Note: Pt in surgery - not seen today
[2019-05-01] MEDS: Ezetimibe 10 MG TAB PO SCH (20:34)
[2019-05-01] MEDS: Folic Acid 1 MG TAB PO SCH (20:34)
[2019-05-01] MEDS: CEFAZOLIN 2 GM in Premix Bag 1 BAG IVPB SCH (20:34)
[2019-05-01] MEDS: Aspirin 81 mg Enteric Coated Tablet PO SCH (20:34)
[2019-05-01] MEDS: Cyanocobalamin (Vitamin B-12) 1,000 MCG TAB PO SCH (20:34)
[2019-05-01] MEDS: Simvastatin 20 MG TAB PO SCH (20:34)
[2019-05-02] MEDS: Sodium Chloride 0.9% 1,000 ML IV SCH ×3 (01:42→23:48)
[2019-05-02] MEDS: Levothyroxine Sodium 100 MCG TAB PO SCH (04:43)
[2019-05-02] MEDS: Vancomycin 1.5 GRAM/300 ML BAG 1.5 GM in Premix Bag 1 BAG IVPB SCH ×2 (04:43→16:03)
[2019-05-02] MEDS: CEFAZOLIN 2 GM in Premix Bag 1 BAG IVPB SCH ×3 (04:43→19:31)
[2019-05-02 07:34] LABS: Hemoglobin 7.5 g/dL (12.0-16.0); Mean Corpuscular Hemoglobin 31.3 pg (27.0-31.0); Platelet Count 240 thou/uL (130-400); RBC Distribution Width 12.9 % (11.5-14.5); White Blood Cell (WBC) Count 16.4 thou/uL (4.8-10.8)
[2019-05-02] MEDS: Calcium Carbonate 600 MG + Vit D TAB PO SCH (09:19)
[2019-05-02] MEDS: Bupropion 150 MG XL TAB PO SCH (09:19)
[2019-05-02] MEDS: Aspirin 81 mg Enteric Coated Tablet PO SCH ×2 (09:20→19:32)
[2019-05-02] MEDS: Ascorbic Acid 500 mg Chewable Tablet PO SCH (09:29)
[2019-05-02] MEDS: Multivitamin W/ Minerals 1 TAB PO SCH (09:30)
[2019-05-02] MEDS: Ferrous Gluconate 324 MG TAB PO SCH ×2 (09:30→16:03)
[2019-05-02] MEDS: Nicotine 21 MG PATCH TD SCH (09:45)
[2019-05-02] MEDS ORDERED: Furosemide 20 MG/2 ML VIAL SLOW IVP SCH (11:30)
[2019-05-02] MEDS: Loperamide HCl 2 MG CAP PO PRN (16:03)
--- NOTE | 2019-05-02 16:36 | PDOC.HOSPP ---
- Subjective Encounter Date: 05/02/19 Encounter Time: 09:45 Subjective: Patient seen and examined for med mngt. Pain controlled. No CP/SOB. No new complaints. No overnight events - Objective Vital Signs & Weight: Vital Signs (12 hours) Temp Pulse Pulse Resp BP BP BP 05/02/19 16:18 99.2 F 107 H 18 106/62 05/02/19 13:38 99 F 118 H 16 93/56 L 05/02/19 13:15 98.8 F 112 H 16 104/54 L 05/02/19 12:38 114 H 16 05/02/19 11:35 98.5 F 113 H 18 96/63 05/02/19 09:38 91/61 05/02/19 08:30 05/02/19 08:25 113 H 16 05/02/19 08:20 05/02/19 07:10 99.3 F 115 H 16 98/63 Pulse Ox 05/02/19 16:18 93 L 05/02/19 13:38 92 L 05/02/19 13:15 94 L 05/02/19 12:38 90 L 05/02/19 11:35 97 05/02/19 09:38 05/02/19 08:30 94 L 05/02/19 08:25 94 L 05/02/19 08:20 93 L 05/02/19 07:10 93 L Weight Admit Weight 217 lb 1.6 oz Weight 217 lb 1.6 oz Most Recent Monitor Data NIBP 110/69 I&O: 05/01/19 05/02/19 05/03/19 06:59 06:59 06:59 Intake Total 1287 680 Output Total 800 350 300 Balance 487 -350 380 Result Diagrams: 05/02/19 07:18 Hospitalist ROS - Review of Systems Respiratory: denies: cough, dry, shortness of breath, hemoptysis, SOB with excertion, pleuritic pain, sputum, wheezing, other Cardiovascular: denies: chest pain, palpitations, orthopnea, paroxysmal noc. dyspnea, edema, light headedness, other - Medication Medications: Active Medications Generic Name Dose Route Start Last Admin Trade Name Freq PRN Reason Stop Dose Admin Acetaminophen 650 mg 04/27/19 18:16 04/29/19 11:04 Tylenol PO 650 mg Q4H PRN Administration Headache/Fever or Pain Albuterol/Ipratropium 3 ml 04/28/19 01:00 05/02/19 12:38 Duoneb NEB 3 ml [id number] SERVANDO Administration Ascorbic Acid 1,000 mg 04/28/19 09:00 05/02/19 09:29 Vitamin C PO 1,000 mg DAILY SERVANDO Administration Aspirin 81 mg 05/01/19 21:00 05/02/19 09:20 Ecotrin PO 81 mg BID SERVANDO Administration Bupropion HCl 150 mg 04/28/19 09:00 05/02/19 09:19 Wellbutrin Xl PO 150 mg QAM SERVANDO Administration Calcium/Vitamin D 1 tab 04/28/19 09:00 05/02/19 09:19 Caltrate 600 + Vit D PO 1 tab DAILY SERVANDO Administration Cholecalciferol 5,000 units 04/28/19 09:00 05/02/19 09:19 Vitamin D3 PO 5,000 units DAILY SERVANDO Administration Cyanocobalamin 1,000 mcg 04/30/19 21:00 05/01/19 20:34 Vitamin B-12 PO 1,000 mcg HS SERVANDO Administration Ezetimibe 10 mg 04/27/19 21:00 05/01/19 20:34 Zetia PO 10 mg HS SERVANDO Administration Ferrous Gluconate 324 mg 04/28/19 08:00 05/02/19 16:03 Fergon PO 324 mg BID-WM SERVANDO Administration Folic Acid 1 mg 04/30/19 21:00 05/01/19 20:34 Folvite PO 1 mg HS SERVANDO Administration Furosemide 20 mg 05/02/19 11:30 05/02/19 16:03 Lasix SLOW IVP 05/03/19 02:00 20 mg ASDIR SERVANDO Administration Sodium Chloride 1,000 mls @ 100 mls/hr 04/27/19 20:30 05/02/19 09:30 Normal Saline 0.9% IV Not Given .Q10H SERVANDO Vancomycin HCl 1.5 gm/ Device 300 mls @ 200 mls/hr 05/02/19 04:00 05/02/19 16 :03 IVPB 300 mls 0400,1600 SERVANDO Administration Cefazolin Sodium/Dextrose 2 gm 50 mls @ 100 mls/hr 05/01/19 20:00 05/02/19 11 :15 / Device IVPB 50 mls 0400,1200,2000 SERVANDO Administration Iron/Minerals/Multivitamins 1 tab 04/28/19 09:00 05/02/19 09:30 Theragran M PO 1 tab DAILY SERVANDO Administration Levothyroxine Sodium 200 mcg 04/28/19 06:00 05/02/19 04:43 Synthroid PO 200 mcg 0600 SERVANDO Administration Loperamide HCl 2 mg 04/30/19 11:25 05/02/19 16:03 Imodium PO 2 mg PRN PRN Administration Diarrhea/Loose Stools Nicotine 21 mg 04/28/19 09:00 05/02/19 09:45 Nicoderm Patch TD 21 mg DAILY SERVANDO Administration Pantoprazole Sodium 40 mg 04/30/19 21:00 05/01/19 20:34 Protonix PO 40 mg HS SERVANDO Administration Simvastatin 20 mg 04/27/19 21:00 05/01/19 20:34 Zocor PO 20 mg HS SERVANDO Administration - Exam General Appearance: NAD Heart: RRR, no gallops Respiratory: no wheezes, no ronchi Gastrointestinal: non-tender, non-distended, normal bowel sounds Extremities: no cyanosis Neurological: no new deficit Hosp A/P - Plan DVT proph w/SCDs Post op Anemia HTN Tobacco dep - on Nicotin patch COPD Hypothyroidism Anxiety HLD Obesity BMI 34 PLAN: Cont Levothyroxine Cont Statins Cont Nebs Cont to monitor CBC /BMP in AM
[2019-05-02] MEDS: Cyanocobalamin (Vitamin B-12) 1,000 MCG TAB PO SCH (19:31)
[2019-05-02] MEDS: Ezetimibe 10 MG TAB PO SCH (19:31)
[2019-05-02] MEDS: Simvastatin 20 MG TAB PO SCH (19:31)
[2019-05-02] MEDS: Folic Acid 1 MG TAB PO SCH (19:32)
[2019-05-02] MEDS: fentaNYL Citrate/PF 2,000 MCG in Sodium Chloride 0.9% 60 ML IV PRN (22:41)
[2019-05-03] MEDS: Levothyroxine Sodium 100 MCG TAB PO SCH (04:34)
[2019-05-03] MEDS: Vancomycin 1.5 GRAM/300 ML BAG 1.5 GM in Premix Bag 1 BAG IVPB SCH ×2 (04:35→16:16)
[2019-05-03] MEDS: CEFAZOLIN 2 GM in Premix Bag 1 BAG IVPB SCH ×3 (04:35→20:32)
[2019-05-03] MEDS: Loperamide HCl 2 MG CAP PO PRN ×2 (04:38→20:33)
[2019-05-03 04:59] LABS: Hemoglobin 8.8 g/dL (12.0-16.0); Mean Corpuscular HGB CONC 33.5 g/dL (32.0-36.0); Mean Corpuscular Hemoglobin 31.2 pg (27.0-31.0); Mean Corpuscular Volume 93.1 fL (78.0-98.0); Mean Platelet Volume 6.9 fL (7.4-10.4); Platelet Count 241 thou/uL (130-400); RBC Distribution Width 13.5 % (11.5-14.5); White Blood Cell (WBC) Count 19.1 thou/uL (4.8-10.8)
[2019-05-03 05:21] LABS: Anion Gap 9 mmol/L (10-20); BUN (Urea Nitrogen) 7 mg/dL (9.8-20.1); Calc. Creatinine Clearance 190 mL/min (70-130); Calcium 8.5 mg/dL (7.8-10.44); Carbon Dioxide 26 mmol/L (23-31); Chloride 100 mmol/L (98-107); Estimated GFR-MDRD Greater than 90; Glucose 124 mg/dL (80-115); Magnesium 1.8 mg/dL (1.6-2.6); Potassium 3.3 mmol/L (3.5-5.1); Sodium 132 mmol/L (136-145)
[2019-05-03] MEDS: Sodium Chloride 0.9% 1,000 ML IV SCH ×2 (07:32→16:17)
[2019-05-03] MEDS: Ferrous Gluconate 324 MG TAB PO SCH ×2 (09:13→16:17)
[2019-05-03] MEDS: Aspirin 81 mg Enteric Coated Tablet PO SCH ×2 (09:13→20:32)
[2019-05-03] MEDS: Nicotine 21 MG PATCH TD SCH (09:14)
[2019-05-03] MEDS: Calcium Carbonate 600 MG + Vit D TAB PO SCH (09:14)
[2019-05-03] MEDS: Bupropion 150 MG XL TAB PO SCH (09:14)
[2019-05-03] MEDS: Ascorbic Acid 500 mg Chewable Tablet PO SCH (09:14)
[2019-05-03] MEDS: Multivitamin W/ Minerals 1 TAB PO SCH (09:14)
--- NOTE | 2019-05-03 15:25 | PDOC.HOSPP ---
- Subjective Encounter Date: 05/03/19 Encounter Time: 15:24 Subjective: Doing well. Passed gas just as Dr. Martinez entered the room. She has been using the IS. Sat up on the side of the bed on her own today. - Objective Vital Signs & Weight: Vital Signs (12 hours) Temp Pulse Resp BP Pulse Ox 05/03/19 12:27 100 14 05/03/19 11:18 98 F 100 18 105/64 91 L 05/03/19 07:10 98.4 F 100 18 100/62 91 L 05/03/19 06:40 100 14 05/03/19 04:20 98.3 F 95 16 116/69 90 L Weight Admit Weight 217 lb 1.6 oz Weight 217 lb 1.6 oz Most Recent Monitor Data NIBP 110/69 I&O: 05/02/19 05/03/19 05/04/19 06:59 06:59 06:59 Intake Total 2020 240 Output Total 350 1750 Balance -350 270 240 Result Diagrams: 05/03/19 04:44 05/03/19 04:44 Hospitalist ROS - Medication Medications: Active Medications Generic Name Dose Route Start Last Admin Trade Name Freq PRN Reason Stop Dose Admin Acetaminophen 650 mg 04/27/19 18:16 04/29/19 11:04 Tylenol PO 650 mg Q4H PRN Administration Headache/Fever or Pain Albuterol/Ipratropium 3 ml 04/28/19 01:00 05/03/19 12:27 Duoneb NEB 3 ml [id number] SERVANDO Administration Ascorbic Acid 1,000 mg 04/28/19 09:00 05/03/19 09:14 Vitamin C PO 1,000 mg DAILY SERVANDO Administration Aspirin 81 mg 05/01/19 21:00 05/03/19 09:13 Ecotrin PO 81 mg BID SERVANDO Administration Bupropion HCl 150 mg 04/28/19 09:00 05/03/19 09:14 Wellbutrin Xl PO 150 mg QAM SERVANDO Administration Calcium/Vitamin D 1 tab 04/28/19 09:00 05/03/19 09:14 Caltrate 600 + Vit D PO 1 tab DAILY SERVANDO Administration Cholecalciferol 5,000 units 04/28/19 09:00 05/03/19 09:13 Vitamin D3 PO 5,000 units DAILY SERVANDO Administration Cyanocobalamin 1,000 mcg 04/30/19 21:00 05/02/19 19:31 Vitamin B-12 PO 1,000 mcg HS SERVANDO Administration Ezetimibe 10 mg 04/27/19 21:00 05/02/19 19:31 Zetia PO 10 mg HS SERVANDO Administration Ferrous Gluconate 324 mg 04/28/19 08:00 05/03/19 09:13 Fergon PO 324 mg BID-WM SERVANDO Administration Folic Acid 1 mg 04/30/19 21:00 05/02/19 19:32 Folvite PO 1 mg HS SERVANDO Administration Sodium Chloride 1,000 mls @ 100 mls/hr 04/27/19 20:30 05/03/19 07:32 Normal Saline 0.9% IV Not Given .Q10H SERVANDO Fentanyl Citrate 2,000 mcg/ 100 mls @ 0 mls/hr 05/01/19 17:35 05/02/19 22:41 Sodium Chloride IV 100 mls INF PRN Administration Pain As Directed Vancomycin HCl 1.5 gm/ Device 300 mls @ 200 mls/hr 05/02/19 04:00 05/03/19 04 :35 IVPB 300 mls 0400,1600 SERVANDO Administration Cefazolin Sodium/Dextrose 2 gm 50 mls @ 100 mls/hr 05/01/19 20:00 05/03/19 13 :19 / Device IVPB 50 mls 0400,1200,2000 SERVANDO Administration Iron/Minerals/Multivitamins 1 tab 04/28/19 09:00 05/03/19 09:14 Theragran M PO 1 tab DAILY SERVANDO Administration Levothyroxine Sodium 200 mcg 04/28/19 06:00 05/03/19 04:34 Synthroid PO 200 mcg 0600 SERVANDO Administration Loperamide HCl 2 mg 04/30/19 11:25 05/03/19 04:38 Imodium PO 2 mg PRN PRN Administration Diarrhea/Loose Stools Nicotine 21 mg 04/28/19 09:00 05/03/19 09:14 Nicoderm Patch TD 21 mg DAILY SERVANDO Administration Pantoprazole Sodium 40 mg 04/30/19 21:00 05/02/19 19:31 Protonix PO 40 mg HS SERVANDO Administration Simvastatin 20 mg 04/27/19 21:00 05/02/19 19:31 Zocor PO 20 mg HS SERVANDO Administration - Exam General Appearance: NAD, awake alert Heart: RRR, no murmur, no gallops, no rubs, normal peripheral pulses Respiratory: CTAB, no wheezes, no rales, no ronchi, normal chest expansion, no tachypnea, normal percussion Gastrointestinal: soft, non-tender, non-distended, normal bowel sounds, no palpable masses, no hepatomegaly, no splenomegaly, no bruit Extremities: no cyanosis, no clubbing, no edema Neurological - other findings: left foot drop - incomplete Psychiatric: normal affect, normal behavior, A&O x 3 Hosp A/P (1) Postoperative anemia Code(s): D64.9 - ANEMIA, UNSPECIFIED Status: Acute (2) Status post total hip replacement, left Code(s): Z96.642 - PRESENCE OF LEFT ARTIFICIAL HIP JOINT Status: Acute (3) COPD (chronic obstructive pulmonary disease) Status: Chronic Qualifiers: COPD type: chronic bronchitis Chronic bronchitis type: unspecified Qualified Code(s): J42 - Unspecified chronic bronchitis (4) Depression Code(s): F32.9 - MAJOR DEPRESSIVE DISORDER, SINGLE EPISODE, UNSPECIFIED Status : Chronic Qualifiers: Depression Type: major depressive disorder (5) Hypothyroidism Code(s): E03.9 - HYPOTHYROIDISM, UNSPECIFIED Status: Chronic Qualifiers: Hypothyroidism type: unspecified Qualified Code(s): E03.9 - Hypothyroidism , unspecified (6) Obesity (BMI 30-39.9) Code(s): E66.9 - OBESITY, UNSPECIFIED Status: Chronic (7) Tobacco abuse Code(s): Z72.0 - TOBACCO USE Status: Chronic (8) Hypokalemia Code(s): E87.6 - HYPOKALEMIA Status: Acute - Plan Doing well with her chronic medical conditions. Continuing home meds. Has leukocytosis. Afebrile. Suspect benign. Follow. Replace potassium.
[2019-05-03] MEDS ORDERED: Potassium Chloride 20 MEQ TAB PO SCH (15:45)
[2019-05-03] MEDS: Ezetimibe 10 MG TAB PO SCH (20:33)
[2019-05-03] MEDS: Folic Acid 1 MG TAB PO SCH (20:33)
[2019-05-03] MEDS: Cyanocobalamin (Vitamin B-12) 1,000 MCG TAB PO SCH (20:33)
[2019-05-03] MEDS: Simvastatin 20 MG TAB PO SCH (20:33)
[2019-05-04] MEDS: Sodium Chloride 0.9% 1,000 ML IV SCH ×2 (01:34→14:59)
[2019-05-04] MEDS: Vancomycin 1.5 GRAM/300 ML BAG 1.5 GM in Premix Bag 1 BAG IVPB SCH (03:29)
[2019-05-04] MEDS: CEFAZOLIN 2 GM in Premix Bag 1 BAG IVPB SCH (03:29)
[2019-05-04] MEDS: Levothyroxine Sodium 100 MCG TAB PO SCH (06:31)
[2019-05-04] MEDS: fentaNYL Citrate/PF 2,000 MCG in Sodium Chloride 0.9% 60 ML IV PRN (07:38)
[2019-05-04 08:18] LABS: Hemoglobin 8.5 g/dL (12.0-16.0); Mean Corpuscular HGB CONC 32.2 g/dL (32.0-36.0); Mean Corpuscular Hemoglobin 30.5 pg (27.0-31.0); Mean Corpuscular Volume 94.7 fL (78.0-98.0); Mean Platelet Volume 6.6 fL (7.4-10.4); Platelet Count 289 thou/uL (130-400); RBC Distribution Width 13.9 % (11.5-14.5); Red Blood Cell (RBC) Count 2.78 mill/uL (4.20-5.40); White Blood Cell (WBC) Count 17.1 thou/uL (4.8-10.8)
[2019-05-04 08:39] LABS: Anion Gap 9 mmol/L (10-20); BUN (Urea Nitrogen) 7 mg/dL (9.8-20.1); Calc. Creatinine Clearance 198 mL/min (70-130); Calcium 8.1 mg/dL (7.8-10.44); Carbon Dioxide 25 mmol/L (23-31); Chloride 101 mmol/L (98-107); Estimated GFR-MDRD Greater than 90; Glucose 106 mg/dL (80-115); Potassium 3.4 mmol/L (3.5-5.1); Sodium 132 mmol/L (136-145)
[2019-05-04] MEDS: Nicotine 21 MG PATCH TD SCH (08:56)
[2019-05-04] MEDS: Ferrous Gluconate 324 MG TAB PO SCH (08:57)
[2019-05-04] MEDS: Aspirin 81 mg Enteric Coated Tablet PO SCH (08:57)
[2019-05-04] MEDS: Calcium Carbonate 600 MG + Vit D TAB PO SCH (08:57)
[2019-05-04] MEDS: Multivitamin W/ Minerals 1 TAB PO SCH (08:58)
[2019-05-04] MEDS: Bupropion 150 MG XL TAB PO SCH (08:58)
[2019-05-04] MEDS: Ascorbic Acid 500 mg Chewable Tablet PO SCH (08:58)
[2019-05-04 09:09] LABS: Band 3 % (5-11); Lymphocytes 11 % (21-51); MDiff Complete? YES; Monocytes 10 % (0-10); Myelocyte 2 % (0-0); Neutrophil 74 % (42-75); Platelet Morphology Comment Appears Adequate; Polychromasia SLIGHT = 2-3 cells (100X) (0-2/hpf)
[2019-05-04] MEDS ORDERED: DC PCA Order Set 1 EACH FS ONE (12:04)
[2019-05-04] MEDS ORDERED: HYDROcodone/Acetaminophen 10/325 mg Tablet PO PRN ×2 (12:05)
[2019-05-04 15:58] VITALS: BP 94/59; TEMP 98
[2019-05-04] MEDS ORDERED: Cefdinir 300 MG CAP PO SCH (21:00)
--- NOTE | 2019-05-05 11:23 | PQF ---
ROMAN VILLARREAL MARK MD [id number] [facility] [id number] CLINICAL DOCUMENTATION IMPROVEMENT CLARIFICATION FORM: ICD-10 Updated PLEASE DO AN ADDENDUM TO THE PROGRESS NOTE WITH ANY DOCUMENTATION UPDATES OR ADDITIONS AND CARRY THROUGH TO DC SUMMARY. THANK YOU. DATE: 05/05/2019 ATTN:DR. Vickie SAMUEL Please exercise your independent, professional judgment in responding to the clarification form. Clinical indicators are provided on the bottom of this form for your review. Please check appropriate box(s): [ Y ] Pelvic Fx is complication of L THR [ Y ] Pelvic Fx is D/T Osteoporosis and is a complication of L THR [ ] Pelvic Fx is D/T osteoporosis and is NOT a complication of L THR [ ] Other diagnosis [ ] Unable to determine In addition, please specify: Present on Admission (POA): [ ] Yes [ N] No [ ] Unable to determine CLINICAL INDICATORS - SIGNS / SYMPTOMS / LABS / RESULTS AND LOCATION IN MR 04/26 ORIGINAL OP NOTE: THERE WAS MARKED DEGENERATIVE ARTHRITIS OF THE HIP AND THERE WAS SIGNIFICANT CHANGE SINCE MOST RECENT X-RAYS; THERE WAS TOTAL COLLAPSE OF THE FEMORAL HEAD, WHICH APPEARED MOST CONSISTENT WITH PROBABLE LONG-STANDING AVASCULAR NECROSIS. TO GET THIS ACETABULUM TO FIT I HAD TO REAM UP TO THE INNER WALL AND THERE WAS A THIN RIM SUPEROLATERALLY AT THE ACETABULUM WHICH I BROKE OFF DURING THE PROCESS WHICH FURTHER COMPROMISED PUTTING THE CUP IN A PRESS FIT FASHION. 04/30 OPERATIVE NOTE: THERE WAS LOSS OF THE INNER WALL OF THE ACETABULUM AND FRACTURE OF THE POSTERIOR RIM, WHICH WAS COMMINUTED AND HAD A BUTTERFLY FRAGMENT. THERE WAS MARKED OSTEOPOROSIS PRESENT. RISK: DEGENERATIVE ARTHRITIS LEFT HIP, ADVANCED AGE (63) (OPNTOREY/JIMMIE) 04/26 TREATMENTS: ORIF PELVIS, L TOTAL HIP REVISION ( 04/30/ JIMMIE) THANK YOU! KAREN (This form is maintained as a part of the permanent medical record) 2014 [employer]. All Rights Reserved NEELAM [email or web address] [phone] [email or web address]
== END 2019-05-04 16:30 | DRG 467 ==
LOC: SURG A 04-27 08:22 → SJJU 04-27 18:13
PROVIDERS: ADMIT Orthopaedic Surgery; ATTEND Orthopaedic Surgery
PROC: 0SRB04A Replacement of Left Hip Joint with Ceramic on Polyethylene Synthetic Substitute, Uncemented, Open Approach (ICD-10-PCS; principal; 2019-04-27)
PROC: 0SRB019 Replacement of Left Hip Joint with Metal Synthetic Substitute, Cemented, Open Approach (ICD-10-PCS; 2019-05-01)
PROC: 0SPB0JZ Removal of Synthetic Substitute from Left Hip Joint, Open Approach (ICD-10-PCS; 2019-05-01)
PROC: 0QS304Z Reposition Left Pelvic Bone with Internal Fixation Device, Open Approach (ICD-10-PCS; 2019-05-01)
DX: M16.12 Unilateral primary osteoarthritis, left hip (principal); M80.052A Age-related osteoporosis with current pathological fracture, left femur, initial encounter for fracture; T84.89XA Other specified complication of internal orthopedic prosthetic devices, implants and grafts, initial encounter; M17.11 Unilateral primary osteoarthritis, right knee; I10 Essential (primary) hypertension; I25.10 Atherosclerotic heart disease of native coronary artery without angina pectoris; E78.5 Hyperlipidemia, unspecified; F32.9 Major depressive disorder, single episode, unspecified; J44.9 Chronic obstructive pulmonary disease, unspecified; E66.9 Obesity, unspecified; F41.9 Anxiety disorder, unspecified; E03.9 Hypothyroidism, unspecified; F17.200 Nicotine dependence, unspecified, uncomplicated; D64.9 Anemia, unspecified; Y83.1 Surgical operation with implant of artificial internal device as the cause of abnormal reaction of the patient, or of later complication, without mention of misadventure at the time of the procedure; E87.6 Hypokalemia; Z88.5 Allergy status to narcotic agent; Z68.34 Body mass index [BMI] 34.0-34.9, adult
CPT/HCPCS: 36415; 36430; 71046; 72192; 76000; 80048; 83735; 85014; 85018; 85025; 85027; 86850; 86900; 86901; 94640; C1713; C1776; J0690; J1100; J1885; J1940; J2001; J2250; J2370; J2405; J2550; J2704; J2765; J2795; J2916; J3010; J3370; J3490; J7050; J7620; P9016; P9045; P9047; Q0163

== ENCOUNTER 2019-04-24 09:51 | Outpatient (CLI) | payer MEDICARE ==
--- NOTE | 2019-04-24 11:04 | RAD ---
PA AND LATERAL VIEWS CHEST: Date: 04/24/2019 HISTORY: Dyspnea. FINDINGS: Comparison made with exam of 08/12/2018. The heart size is normal. The lungs are well expanded without lobar consolidation, pneumothoraces, or pleural effusions. There are degenerative changes in the spine. Postop changes and metallic hardware in the lower cervical spine are again seen. IMPRESSION: Stable exam. No radiographic evidence of acute cardiopulmonary process. POS: [facility]
== END 2019-04-24 09:52 | disposition home or self-care (01) ==
LOC: RAD 09:51
PROVIDERS: ATTEND Internal Medicine Critical Care Medicine
DX: R06.00 Dyspnea, unspecified (principal)
CPT/HCPCS: 71046

== ENCOUNTER 2019-05-06 13:05 | Emergency (ER) | payer MEDICARE ==
[2019-05-06 13:52] LABS: Hemoglobin 9.2 g/dL (12.0-16.0); Mean Corpuscular HGB CONC 33.2 g/dL (32.0-36.0); Mean Corpuscular Hemoglobin 31.6 pg (27.0-31.0); Mean Corpuscular Volume 95.2 fL (78.0-98.0); Mean Platelet Volume 6.4 fL (7.4-10.4); Platelet Count 447 thou/uL (130-400); RBC Distribution Width 13.3 % (11.5-14.5); Red Blood Cell (RBC) Count 2.92 mill/uL (4.20-5.40); White Blood Cell (WBC) Count 20.1 thou/uL (4.8-10.8)
[2019-05-06 14:08] LABS: ALT (SGPT) 140 U/L (8-55); AST (SGOT) 89 U/L (5-34); Albumin 2.7 g/dL (3.4-4.8); Alkaline Phosphatase 86 U/L (40-110); Anion Gap 11 mmol/L (10-20); BUN (Urea Nitrogen) 7 mg/dL (9.8-20.1); Bilirubin, Total 0.4 mg/dL (0.2-1.2); Calc. Creatinine Clearance 0 mL/min (70-130); Calcium 8.5 mg/dL (7.8-10.44); Carbon Dioxide 30 mmol/L (23-31); Chloride 96 mmol/L (98-107); Estimated GFR-MDRD Greater than 90; Globulin 2.6 g/dL (2.4-3.5); Glucose 90 mg/dL (80-115); Potassium 3.1 mmol/L (3.5-5.1); Protein, Total 5.3 g/dL (6.0-8.3); Sodium 134 mmol/L (136-145)
[2019-05-06 14:22] LABS: Band 10 % (5-11); Eosinophils 2 % (0-10); Hypochromia SLIGHT = 6-15 cells (100X) (0-5/hpf); Lymphocytes 5 % (21-51); MDiff Complete? YES; Metamyelocyte 1 % (0-0); Monocytes 6 % (0-10); Myelocyte 2 % (0-0); Neutrophil 72 % (42-75); Platelet Morphology Comment Appears Increased; Polychromasia SLIGHT = 2-3 cells (100X) (0-2/hpf); Reactive Lymphocytes 2 % (0-10)
[2019-05-06] MEDS ORDERED: Fentanyl 100 MCG/2 ML VIAL ONE (14:36)
== END 2019-05-06 17:03 | disposition home or self-care (01) ==
LOC: ERS 13:05
DX: K56.0 Paralytic ileus (principal); E78.5 Hyperlipidemia, unspecified; E78.00 Pure hypercholesterolemia, unspecified; I10 Essential (primary) hypertension; J44.9 Chronic obstructive pulmonary disease, unspecified; F17.210 Nicotine dependence, cigarettes, uncomplicated; Z79.82 Long term (current) use of aspirin; Z79.899 Other long term (current) drug therapy
CPT/HCPCS: 36415; 96374; J3010

== ENCOUNTER 2019-11-25 07:57 | Outpatient (CLI) | payer MEDICARE, OTHER ==
[2019-11-25 18:00] LABS: Hemoglobin 13.2 g/dL (12.0-16.0); Mean Corpuscular HGB CONC 32.9 g/dL (32.0-36.0); Mean Corpuscular Hemoglobin 30.8 pg (27.0-31.0); Mean Corpuscular Volume 93.5 fL (78.0-98.0); Mean Platelet Volume 7.8 fL (7.4-10.4); Platelet Count 240 thou/uL (130-400); RBC Distribution Width 12.6 % (11.5-14.5); Red Blood Cell (RBC) Count 4.28 mill/uL (4.20-5.40); White Blood Cell (WBC) Count 7.5 thou/uL (4.8-10.8)
[2019-11-25 19:22] LABS: Anion Gap 12 mmol/L (10-20); BUN (Urea Nitrogen) 14 mg/dL (9.8-20.1); Calc. Creatinine Clearance 0 mL/min (70-130); Calcium 9.3 mg/dL (7.8-10.44); Carbon Dioxide 26 mmol/L (23-31); Chloride 103 mmol/L (98-107); Estimated GFR-MDRD Greater than 90; Glucose 101 mg/dL (80-115); Potassium 4.5 mmol/L (3.5-5.1); Sodium 136 mmol/L (136-145)
[2019-11-26 12:47] LABS: SARS-CoV-2 MS2 Positive; SARS-CoV-2 N Gene Negative; SARS-CoV-2 S Gene Negative; SARS-CoV-2 by NAA Not Detected (NotDetected); SARS-CoV-2 orf1ab Negative
--- NOTE | 2019-11-28 16:46 | EKG ---
Test Reason : Blood Pressure : / mmHG Vent. Rate : 082 BPM Atrial Rate : 082 BPM P-R Int : 164 ms QRS Dur : 074 ms QT Int : 374 ms P-R-T Axes : 043 012 053 degrees QTc Int : 436 ms Normal sinus rhythm Low voltage QRS Borderline ECG No previous ECGs available Confirmed by DR. Tabby PRATT ([id number]) on 11/28/2019 4:46:02 PM Referred By: COLE Confirmed By:DR. Tabby PRATT
== END 2019-11-25 07:58 | disposition home or self-care (01) ==
LOC: LABBT 07:57
PROVIDERS: ATTEND Neurological Surgery
DX: Z01.818 Encounter for other preprocedural examination (principal); M48.062 Spinal stenosis, lumbar region with neurogenic claudication; Z20.828 Contact with and (suspected) exposure to other viral communicable diseases
CPT/HCPCS: 80048; 85027; 93005; U0003; 87635; 93010

== ENCOUNTER 2019-11-30 06:31 | Inpatient (IN) | payer MEDICARE ==
[2019-11-27 09:33] VITALS: BMI 36.0
[2019-11-30] MEDS ORDERED: Fentanyl 100 MCG/2 ML VIAL ONE ×2 (06:47→10:11)
[2019-11-30] MEDS ORDERED: Famotidine/PF 20 mg/2ml Vial ONE (07:50)
[2019-11-30] MEDS ORDERED: Midazolam HCl 2 mg/2 ml Vial ONE (07:50)
[2019-11-30] MEDS ORDERED: SUGAMMADEX SODIUM 200 MG/2 ML VIAL ONE (08:53)
--- NOTE | 2019-11-30 09:33 | OP ---
DATE OF PROCEDURE: 11/30/2019 DIESEL SCOOP OPERATOR: Lenore Seaman PA-C PROCEDURE PERFORMED: L3 through L5 decompressive laminectomy. DESCRIPTION OF PROCEDURE: The patient was brought to the operating room and intubated. She was rolled in a prone position on gel-filled chest rolls. An incision was made exposing L3 through L5 and the level was confirmed by x-ray. The procedure was very difficult given her extremely large body habitus. We performed complete L5, complete L4, and inferior L3 laminectomies and removed extensive and dramatic facet arthropathy. A complete decompression from L3 through L5 was achieved. The wound was then extensively irrigated and MAC hemostasis was secured. Vancomycin powder was applied and the wound was closed in anatomic layers over drain. Job ID: [id number]
[2019-11-30] MEDS ORDERED: HYDROmorphone 2 MG/ML VIAL SLOW IVP PRN (09:39)
[2019-11-30] MEDS ORDERED: Promethazine HCl 25 MG/ML VIAL IM PRN ×2 (09:39→10:30)
[2019-11-30] MEDS ORDERED: Promethazine HCl 25 MG/ML VIAL SLOW IVP PRN (09:39)
[2019-11-30] MEDS ORDERED: Meperidine HCl/PF 25 MG/ML VIAL SLOW IVP PRN (09:39)
[2019-11-30] MEDS ORDERED: Mag-Al 1200 mg/1200 mg/30 ML UDCUP PO PRN (10:30)
[2019-11-30] MEDS ORDERED: HYDROcodone/Acetaminophen 7.5/325 mg Tablet PO PRN ×2 (10:30)
[2019-11-30] MEDS ORDERED: tiZANidine HCl 4 MG TAB PO PRN (10:30)
[2019-11-30] MEDS ORDERED: Morphine 4 MG/ML VIAL SLOW IVP PRN (10:30)
[2019-11-30] MEDS ORDERED: diphenhydrAMINE 25 MG CAP PO PRN (10:30)
[2019-11-30] MEDS ORDERED: diphenhydrAMINE 50 MG/ML VIAL IVP PRN (10:30)
[2019-11-30] MEDS ORDERED: Promethazine HCl 12.5 MG SUPP PR PRN (10:30)
[2019-11-30] MEDS ORDERED: Ondansetron PF 4 MG/2 ML Vial IM PRN (10:30)
[2019-11-30] MEDS ORDERED: Milk Of Magnesia 30 ML UDCUP PO PRN (10:30)
[2019-11-30] MEDS ORDERED: Morphine 2 MG/ML VIAL SLOW IVP PRN (10:30)
[2019-11-30] MEDS ORDERED: Promethazine 25 MG TAB PO PRN (10:30)
[2019-11-30] MEDS ORDERED: traMADol HCl 50 MG TAB PO PRN (10:30)
[2019-11-30] MEDS ORDERED: Ondansetron PF 4 MG/2 ML Vial ONE (13:46)
[2019-11-30] MEDS ORDERED: Lidocaine 1% PF 5 ML VIAL ONE (13:46)
[2019-11-30] MEDS ORDERED: Rocuronium Bromide 10 MG/ML (10ML VIAL) ONE (13:46)
[2019-11-30] MEDS ORDERED: Dexamethasone 20 MG/5 ML VIAL ONE (13:46)
[2019-11-30] MEDS ORDERED: Ketorolac Tromethamine 30 MG/ML VIAL ONE (13:46)
[2019-11-30] MEDS ORDERED: EPHEDRINE 25 MG/5 ML SYRINGE ONE (13:46)
[2019-11-30] MEDS: Gabapentin 300 MG CAP PO SCH ×2 (16:01→20:58)
[2019-11-30] MEDS: CEFAZOLIN 2 GM in Premix Bag 1 BAG IVPB SCH ×2 (16:01→21:04)
[2019-11-30] MEDS: Sodium Chloride 0.9% 1,000 ML IV SCH ×2 (16:05→21:21)
[2019-11-30] MEDS: traMADol HCl 50 MG TAB PO PRN (16:16)
--- NOTE | 2019-11-30 16:43 | PDOC.HOSPP ---
- Subjective Encounter Date: 11/30/19 Encounter Time: 16:42 Subjective: Patient seen for management of medical comorbidities. She denies chest pain or shortness of breath. - Objective Vital Signs & Weight: Weight Weight 230 lb Additional Labs: I reviewed patient's labs and MAR Hospitalist ROS - Review of Systems Cardiovascular: denies: chest pain, palpitations, orthopnea, paroxysmal noc. dyspnea, edema, light headedness Gastrointestinal: denies: nausea, vomiting, abdominal pain, diarrhea, constipation, melena, hematochezia - Medication Medications: Active Medications Generic Name Dose Route Start Last Admin Trade Name Freq PRN Reason Stop Dose Admin Gabapentin 600 mg 11/30/19 15:00 11/30/19 16:01 Gabapentin 300 Mg Cap PO 600 mg TID SERVANDO Administration Sodium Chloride 1,000 mls @ 75 mls/hr 11/30/19 10:30 11/30/19 16:05 Normal Saline 0.9% IV 1,000 mls .[id number] SERVANDO Administration Cefazolin Sodium/Dextrose 2 gm 50 mls @ 100 mls/hr 11/30/19 14:00 11/30/19 16:01 / Device IVPB 50 mls Q8HR SERVANDO Administration Tramadol HCl 50 mg 11/30/19 10:30 11/30/19 16:16 Tramadol Hcl 50 Mg Tab PO 50 mg Q6H PRN Administration PAIN (1-3) - Exam General Appearance: awake alert Eye: anicteric sclera ENT: moist mucosa Neck: supple Heart: RRR Respiratory: CTAB Gastrointestinal: soft Skin: no rashes Psychiatric: normal affect, normal behavior Hosp A/P (1) COPD (chronic obstructive pulmonary disease) Status: Chronic Qualifiers: COPD type: chronic bronchitis Chronic bronchitis type: unspecified Qualified Code(s): J42 - Unspecified chronic bronchitis (2) Hypothyroidism Code(s): E03.9 - HYPOTHYROIDISM, UNSPECIFIED Status: Chronic Qualifiers: Hypothyroidism type: unspecified Qualified Code(s): E03.9 - Hypothyroidism, unspecified (3) Obesity (BMI 30-39.9) Code(s): E66.9 - OBESITY, UNSPECIFIED Status: Chronic (4) Depression Code(s): F32.9 - MAJOR DEPRESSIVE DISORDER, SINGLE EPISODE, UNSPECIFIED Status: Chronic Qualifiers: Depression Type: major depressive disorder - Plan COPD stable. Continue Lipitor. Continue Synthroid.
[2019-11-30] MEDS: Ipratropium Bromide 2.5 ml Neb NEB SCH (19:24)
[2019-11-30] MEDS: Atorvastatin Calcium 20 MG TAB PO SCH (20:58)
[2019-12-01] MEDS: Ipratropium Bromide 2.5 ml Neb NEB SCH ×4 (01:06→21:16)
[2019-12-01] MEDS: Levothyroxine Sodium 100 MCG TAB PO SCH (05:19)
[2019-12-01] MEDS: CEFAZOLIN 2 GM in Premix Bag 1 BAG IVPB SCH ×3 (05:19→21:41)
[2019-12-01] MEDS: traMADol HCl 50 MG TAB PO PRN (05:20)
--- NOTE | 2019-12-01 06:43 | PRG ---
DATE OF SERVICE: 12/01/2019 SUBJECTIVE: Ms. Goldberg is doing quite well on postoperative day #1. She feels her legs are substantially improved. Her pain control is adequate on tramadol. Her drain output has been approximately 170 mL or so since surgery. The patient wishes to go home today, but we will check on the drain output at noon to see if this will allow dismissal today or wait until tomorrow. Job ID: [id number]
[2019-12-01] MEDS ORDERED: FLU VACC QS2020-21(65YR UP)/PF 240 MCG/0.7 ML SYRINGE IM ONE (09:00)
[2019-12-01] MEDS ORDERED: ESTER C 1000 MG PO SCH (09:00)
[2019-12-01] MEDS: Aspirin 81 mg Enteric Coated Tablet PO SCH (09:12)
[2019-12-01] MEDS: Calcium Carbonate 600 MG + Vit D TAB PO SCH (09:12)
[2019-12-01] MEDS: Prenatal Vitamin 1 TAB PO SCH (09:12)
[2019-12-01] MEDS: Gabapentin 300 MG CAP PO SCH ×3 (09:12→20:33)
[2019-12-01] MEDS: Cholecalciferol 1,000 UNITS (25 MCG) TAB PO SCH (09:14)
--- NOTE | 2019-12-01 11:39 | PDOC.HOSPP ---
- Subjective Encounter Date: 12/01/19 Encounter Time: 08:40 Subjective: Patient seen for follow-up for chronic obstructive pulmonary disease. She denies any chest pain or shortness of breath. - Objective Vital Signs & Weight: Vital Signs (12 hours) Temp Pulse Resp BP Pulse Ox 12/01/19 07:39 98.3 F 74 20 118/59 L 94 L 12/01/19 06:44 85 14 95 12/01/19 05:15 97.6 F 81 18 117/68 93 L 12/01/19 01:06 12 12/01/19 00:34 98.0 F 93 18 102/58 L 92 L Weight Weight 230 lb I&O: 11/30/19 12/01/19 12/02/19 06:59 06:59 06:59 Intake Total 930 Output Total 260 Balance 670 Additional Labs: I reviewed patient's labs and MAR Hospitalist ROS - Review of Systems Cardiovascular: denies: chest pain, palpitations, orthopnea, paroxysmal noc. dyspnea, edema, light headedness Gastrointestinal: denies: nausea, vomiting, abdominal pain, diarrhea, constipation, melena, hematochezia - Medication Medications: Active Medications Generic Name Dose Route Start Last Admin Trade Name Freq PRN Reason Stop Dose Admin Aspirin 81 mg 12/01/19 09:00 12/01/19 09:12 Aspirin 81 Mg Enteric Coated Tablet PO Not Given DAILY SERVANDO Atorvastatin Calcium 20 mg 11/30/19 21:00 11/30/19 20:58 Atorvastatin Calcium 20 Mg Tab PO 20 mg HS SERVANDO Administration Calcium/Vitamin D 1 tab 12/01/19 09:00 12/01/19 09:12 Calcium Carbonate 600 Mg + Vit D Tab PO 1 tab DAILY SERVANDO Administration Cholecalciferol 1,250 units 12/01/19 09:00 12/01/19 09:14 Cholecalciferol 1,000 Units (25 Mcg) Tab PO 1,250 units DAILY SERVANDO Administration Gabapentin 600 mg 11/30/19 15:00 12/01/19 09:12 Gabapentin 300 Mg Cap PO 600 mg TID SERVANDO Administration Sodium Chloride 1,000 mls @ 75 mls/hr 11/30/19 10:30 11/30/19 21:21 Normal Saline 0.9% IV Not Given .[id number] SERVANDO Cefazolin Sodium/Dextrose 2 gm 50 mls @ 100 mls/hr 11/30/19 14:00 12/01/19 05:19 / Device IVPB 50 mls Q8HR SERVANDO Administration Ipratropium [place] 2.5 ml 11/30/19 18:00 12/01/19 06:44 Ipratropium [place] 2.5 Ml Neb NEB 2.5 ml Q6HR SERVANDO Administration Levothyroxine Sodium 200 mcg 12/01/19 06:00 12/01/19 05:19 Levothyroxine Sodium 100 Mcg Tab PO 200 mcg 0600 SERVANDO Administration Multivit/Folic Acid/Iron 1 tab 12/01/19 09:00 12/01/19 09:12 Vitamin 1 Tab PO 1 tab DAILY SERVANDO Administration Sodium Chloride 10 ml 11/30/19 21:00 12/01/19 09:17 Flush - Normal Saline 10 Ml Syringe IVF 10 ml Q12HR SERVANDO Administration Tramadol HCl 50 mg 11/30/19 10:30 12/01/19 05:20 Tramadol Hcl 50 Mg Tab PO 50 mg Q6H PRN Administration PAIN (1-3) - Exam General Appearance: awake alert Eye: anicteric sclera ENT: normocephalic atraumatic Neck: supple Heart: RRR Respiratory: CTAB Gastrointestinal: soft, non-tender Extremities: no cyanosis Skin: normal turgor Psychiatric: normal affect Hosp A/P (1) COPD (chronic obstructive pulmonary disease) Status: Chronic Qualifiers: COPD type: chronic bronchitis Chronic bronchitis type: unspecified Qualified Code(s): J42 - Unspecified chronic bronchitis (2) Obesity (BMI 30-39.9) Code(s): E66.9 - OBESITY, UNSPECIFIED Status: Chronic (3) Hypothyroidism Code(s): E03.9 - HYPOTHYROIDISM, UNSPECIFIED Status: Chronic Qualifiers: Hypothyroidism type: unspecified Qualified Code(s): E03.9 - Hypothyroidism, unspecified (4) Depression Code(s): F32.9 - MAJOR DEPRESSIVE DISORDER, SINGLE EPISODE, UNSPECIFIED Status: Chronic Qualifiers: Depression Type: major depressive disorder - Plan Clinically stable. Continue Lipitor and Synthroid. Status post laminectomy. DVT prophylaxis and pain management per neurosurgery service.
[2019-12-01] MEDS ORDERED: Nicotine 7 MG PATCH TOP SCH (13:00)
[2019-12-01] MEDS: Sodium Chloride 0.9% 1,000 ML IV SCH (14:06)
[2019-12-01] MEDS: Atorvastatin Calcium 20 MG TAB PO SCH (20:33)
[2019-12-02] MEDS: Ipratropium Bromide 2.5 ml Neb NEB SCH ×2 (00:35→07:12)
[2019-12-02] MEDS: Sodium Chloride 0.9% 1,000 ML IV SCH (02:12)
[2019-12-02] MEDS: CEFAZOLIN 2 GM in Premix Bag 1 BAG IVPB SCH (05:22)
[2019-12-02] MEDS: Levothyroxine Sodium 100 MCG TAB PO SCH (05:23)
[2019-12-02] MEDS: traMADol HCl 50 MG TAB PO PRN (08:15)
[2019-12-02 08:16] VITALS: BP 110/72; TEMP 97.7
[2019-12-02] MEDS: Gabapentin 300 MG CAP PO SCH (08:16)
[2019-12-02] MEDS: Aspirin 81 mg Enteric Coated Tablet PO SCH (08:16)
[2019-12-02] MEDS: Calcium Carbonate 600 MG + Vit D TAB PO SCH (08:16)
[2019-12-02] MEDS: Cholecalciferol 1,000 UNITS (25 MCG) TAB PO SCH (08:16)
[2019-12-02] MEDS: Prenatal Vitamin 1 TAB PO SCH (08:16)
== END 2019-12-02 11:30 | disposition home health service (06) | DRG 517 ==
LOC: SDC 06:31 → SURG B 10:18 → OBSVTOIN 12-02 10:05
PROVIDERS: ADMIT Neurological Surgery; ATTEND Neurological Surgery
PROC: 01NB0ZZ Release Lumbar Nerve, Open Approach (ICD-10-PCS; principal; 2019-11-30)
DX: M48.062 Spinal stenosis, lumbar region with neurogenic claudication (principal); J44.9 Chronic obstructive pulmonary disease, unspecified; E03.9 Hypothyroidism, unspecified; F32.9 Major depressive disorder, single episode, unspecified; E66.9 Obesity, unspecified; Z68.36 Body mass index [BMI] 36.0-36.9, adult; Z88.6 Allergy status to analgesic agent; E78.5 Hyperlipidemia, unspecified; I50.9 Heart failure, unspecified
CPT/HCPCS: 76000; 94640; 96365; 96366; G0378; J0690; J1100; J1885; J2250; J2405; J3010; J3370; S0028

== ENCOUNTER 2020-07-29 08:26 | Outpatient (CLI) | payer MEDICARE | END 2020-07-29 08:27 | disposition home or self-care (01) | LOC: BICCT 08:26 | PROVIDERS: ATTEND Family Medicine | DX: Z12.2 Encounter for screening for malignant neoplasm of respiratory organs (principal); I25.10 Atherosclerotic heart disease of native coronary artery without angina pectoris; Z87.891 Personal history of nicotine dependence | CPT/HCPCS: 71271 ==

== ENCOUNTER 2020-11-14 15:15 | Inpatient (IN) | payer MEDICARE ==
[2020-11-16 10:58] VITALS: BMI 39.1
[2020-11-17] MEDS ORDERED: diphenhydrAMINE 25 MG CAP PO PRN (09:08)
[2020-11-17] MEDS ORDERED: Fentanyl 100 MCG/2 ML VIAL SLOW IVP PRN (09:08)
[2020-11-17] MEDS ORDERED: Promethazine HCl 25 MG/ML VIAL IM PRN ×2 (09:08→11:07)
[2020-11-17] MEDS ORDERED: Zolpidem Tartrate 5 MG TAB PO PRN (09:08)
[2020-11-17] MEDS ORDERED: HYDROcodone/Acetaminophen 10/325 mg Tablet PO PRN ×2 (09:08)
[2020-11-17] MEDS ORDERED: Ondansetron PF 4 MG/2 ML Vial IVP PRN (09:08)
[2020-11-17] MEDS ORDERED: Tranexamic Acid 1,000 MG/10 ML VIAL ONE (09:09)
[2020-11-17] MEDS ORDERED: Sodium Chloride 0.9% 100 ML ONE (09:09)
[2020-11-17] MEDS ORDERED: Fentanyl 100 MCG/2 ML VIAL ONE (09:13)
[2020-11-17] MEDS ORDERED: PHENYLEPHRINE-NS 100 MCG/ML 10 ML SYRINGE ONE (09:22)
[2020-11-17] MEDS ORDERED: Glycopyrrolate 0.2 MG/ML 5 ML SYRINGE ONE (09:22)
[2020-11-17] MEDS ORDERED: Esmolol 100 MG/10 ML VIAL ONE (09:22)
[2020-11-17] MEDS ORDERED: PROPOFOL 200 MG/20 ML VIAL ONE (09:22)
[2020-11-17] MEDS ORDERED: Lidocaine 1% PF 5 ML VIAL ONE (09:22)
[2020-11-17] MEDS ORDERED: Dexamethasone 20 MG/5 ML VIAL ONE (09:22)
[2020-11-17] MEDS ORDERED: ePHEDrine 50 MG/ML VIAL ONE (09:22)
[2020-11-17] MEDS ORDERED: Ondansetron PF 4 MG/2 ML Vial ONE (09:22)
[2020-11-17] MEDS ORDERED: Rocuronium Bromide 10 MG/ML (10ML VIAL) ONE (09:22)
[2020-11-17] MEDS ORDERED: Ketorolac Tromethamine 30 MG/ML VIAL ONE (09:22)
[2020-11-17] MEDS ORDERED: HYDROmorphone 2 MG/ML VIAL ONE (10:36)
[2020-11-17] MEDS ORDERED: PACU-Morphine 4MG/ML VIAL SLOW IVP PRN (11:07)
[2020-11-17] MEDS ORDERED: HYDROmorphone 2 MG/ML VIAL SLOW IVP PRN (11:07)
[2020-11-17] MEDS ORDERED: Promethazine HCl 25 MG/ML VIAL IVPB PRN (11:07)
[2020-11-17] MEDS ORDERED: Ondansetron HCl/PF 4 MG/2 ML Vial IVP PRN (11:07)
[2020-11-17] MEDS ORDERED: Heparin 1,000 UNITS/ML VIAL ONE (14:11)
[2020-11-17] MEDS: ceFAZolin Sodium/D5W 2 GM in Premix Bag 1 BAG IVPB SCH ×2 (16:40→20:11)
[2020-11-17] MEDS: Ipratropium Bromide 2.5 ml Neb NEB SCH (18:23)
[2020-11-17] MEDS: Sodium Chloride 0.9% 1,000 ML IV SCH ×2 (19:31→20:12)
[2020-11-17] MEDS: Atorvastatin Calcium 20 MG TAB PO SCH (20:11)
[2020-11-17] MEDS: Aspirin 81 mg Enteric Coated Tablet PO SCH (20:11)
[2020-11-17] MEDS: Senokot S 8.6-50 MG TAB PO SCH (20:11)
[2020-11-17] MEDS: Ferrous Gluconate 324 MG TAB PO SCH (20:11)
[2020-11-17] MEDS: Vancomycin 1.5 GRAM/300 ML BAG 1.5 GM in Premix Bag 1 BAG IVPB SCH (20:11)
[2020-11-18] MEDS: Ipratropium Bromide 2.5 ml Neb NEB SCH ×4 (00:42→19:20)
[2020-11-18] MEDS: Acetaminophen 325 MG TAB PO PRN ×2 (03:44→11:02)
[2020-11-18] MEDS: ceFAZolin Sodium/D5W 2 GM in Premix Bag 1 BAG IVPB SCH ×3 (04:37→19:42)
[2020-11-18] MEDS: Levothyroxine 150 MCG TAB PO SCH (04:37)
[2020-11-18 05:56] LABS: Mean Corpuscular HGB CONC 32.2 g/dL (32.0-36.0); Mean Corpuscular Hemoglobin 29.6 pg (27.0-31.0); Mean Corpuscular Volume 91.9 fL (78.0-98.0); Mean Platelet Volume 6.6 fL (7.4-10.4); Platelet Count 383 thou/uL (130-400); RBC Distribution Width 14.2 % (11.5-14.5); Red Blood Cell (RBC) Count 3.39 mill/uL (4.20-5.40); White Blood Cell (WBC) Count 13.4 thou/uL (4.8-10.8)
[2020-11-18] MEDS: Calcium Carbonate 600 MG + Vit D TAB PO SCH (08:03)
[2020-11-18] MEDS: Multivitamin W/ Minerals 1 TAB PO SCH (08:03)
[2020-11-18] MEDS: Prenatal Vitamin 1 TAB PO SCH (08:03)
[2020-11-18] MEDS: Cholecalciferol 1,000 UNITS (25 MCG) TAB PO SCH (08:04)
[2020-11-18] MEDS: Senokot S 8.6-50 MG TAB PO SCH ×2 (08:04→19:42)
[2020-11-18] MEDS: Aspirin 81 mg Enteric Coated Tablet PO SCH ×3 (08:05→13:10)
[2020-11-18] MEDS: Ferrous Gluconate 324 MG TAB PO SCH ×2 (08:05→19:42)
[2020-11-18] MEDS: Bupropion 150 MG XL TAB PO SCH (08:05)
[2020-11-18] MEDS ORDERED: Non-Formulary Item 1 EACH (Tiotropium Bromide 4 GM Mist.Inhal) IH SCH (09:00)
[2020-11-18] MEDS: Vancomycin 1.5 GRAM/300 ML BAG 1.5 GM in Premix Bag 1 BAG IVPB SCH ×2 (11:09→19:43)
[2020-11-18] MEDS: Sodium Chloride 0.9% 1,000 ML IV SCH (19:26)
[2020-11-18] MEDS: Atorvastatin Calcium 20 MG TAB PO SCH (19:42)
[2020-11-19] MEDS: Ipratropium Bromide 2.5 ml Neb NEB SCH ×4 (02:11→23:34)
[2020-11-19] MEDS: Levothyroxine 150 MCG TAB PO SCH (05:09)
[2020-11-19] MEDS: ceFAZolin Sodium/D5W 2 GM in Premix Bag 1 BAG IVPB SCH ×3 (05:10→23:22)
[2020-11-19 05:58] LABS: Hemoglobin 10.1 g/dL (12.0-16.0); Mean Corpuscular HGB CONC 32.2 g/dL (32.0-36.0); Mean Corpuscular Hemoglobin 30.1 pg (27.0-31.0); Mean Corpuscular Volume 93.4 fL (78.0-98.0); Mean Platelet Volume 6.5 fL (7.4-10.4); Platelet Count 353 thou/uL (130-400); RBC Distribution Width 14.7 % (11.5-14.5); Red Blood Cell (RBC) Count 3.35 mill/uL (4.20-5.40); White Blood Cell (WBC) Count 11.2 thou/uL (4.8-10.8)
[2020-11-19] MEDS: Multivitamin W/ Minerals 1 TAB PO SCH (08:28)
[2020-11-19] MEDS: Bupropion 150 MG XL TAB PO SCH (08:28)
[2020-11-19] MEDS: Calcium Carbonate 600 MG + Vit D TAB PO SCH (08:29)
[2020-11-19] MEDS: Aspirin 81 mg Enteric Coated Tablet PO SCH ×3 (08:29→20:16)
[2020-11-19] MEDS: Senokot S 8.6-50 MG TAB PO SCH ×2 (08:29→20:18)
[2020-11-19] MEDS: Prenatal Vitamin 1 TAB PO SCH (08:30)
[2020-11-19] MEDS: Ferrous Gluconate 324 MG TAB PO SCH ×2 (08:30→20:18)
[2020-11-19] MEDS: Cholecalciferol 1,000 UNITS (25 MCG) TAB PO SCH (09:10)
[2020-11-19] MEDS: Vancomycin 1.5 GRAM/300 ML BAG 1.5 GM in Premix Bag 1 BAG IVPB SCH ×2 (09:11→20:16)
[2020-11-19] MEDS: Sodium Chloride 0.9% 1,000 ML IV SCH ×2 (14:09→23:21)
[2020-11-19] MEDS: Atorvastatin Calcium 20 MG TAB PO SCH (20:18)
[2020-11-20] MEDS: Acetaminophen 325 MG TAB PO PRN (00:06)
[2020-11-20 04:43] LABS: Mean Corpuscular HGB CONC 31.4 g/dL (32.0-36.0); Mean Corpuscular Hemoglobin 29.4 pg (27.0-31.0); Mean Corpuscular Volume 93.6 fL (78.0-98.0); Mean Platelet Volume 6.5 fL (7.4-10.4); Platelet Count 352 thou/uL (130-400); RBC Distribution Width 14.9 % (11.5-14.5); Red Blood Cell (RBC) Count 3.39 mill/uL (4.20-5.40); White Blood Cell (WBC) Count 9.8 thou/uL (4.8-10.8)
[2020-11-20] MEDS: ceFAZolin Sodium/D5W 2 GM in Premix Bag 1 BAG IVPB SCH ×3 (06:59→23:32)
[2020-11-20] MEDS: Levothyroxine 150 MCG TAB PO SCH (06:59)
[2020-11-20] MEDS: Vancomycin 1.5 GRAM/300 ML BAG 1.5 GM in Premix Bag 1 BAG IVPB SCH ×2 (09:00→20:20)
[2020-11-20] MEDS: Sodium Chloride 0.9% 1,000 ML IV SCH ×2 (10:18→17:28)
[2020-11-20] MEDS: Senokot S 8.6-50 MG TAB PO SCH ×2 (10:22→20:21)
[2020-11-20] MEDS: Aspirin 81 mg Enteric Coated Tablet PO SCH ×5 (10:22→20:20)
[2020-11-20] MEDS: Ferrous Gluconate 324 MG TAB PO SCH ×2 (10:23→20:20)
[2020-11-20] MEDS: Multivitamin W/ Minerals 1 TAB PO SCH (10:24)
[2020-11-20] MEDS: Prenatal Vitamin 1 TAB PO SCH (10:24)
[2020-11-20] MEDS: Calcium Carbonate 600 MG + Vit D TAB PO SCH (10:24)
[2020-11-20] MEDS: Bupropion 150 MG XL TAB PO SCH (10:24)
[2020-11-20] MEDS: Cholecalciferol 1,000 UNITS (25 MCG) TAB PO SCH (10:24)
[2020-11-20] MEDS: Ipratropium Bromide 2.5 ml Neb NEB SCH ×3 (15:01→18:09)
[2020-11-20] MEDS: Atorvastatin Calcium 20 MG TAB PO SCH (20:20)
[2020-11-20] MEDS: CEFAZOLIN 2 GM in Premix Bag 1 BAG IVPB SCH (23:31)
[2020-11-21] MEDS: Ipratropium Bromide 2.5 ml Neb NEB SCH ×4 (00:15→18:47)
[2020-11-21] MEDS: Sodium Chloride 0.9% 1,000 ML IV SCH ×2 (03:45→13:21)
[2020-11-21 06:19] LABS: Hemoglobin 10.6 g/dL (12.0-16.0); Mean Corpuscular HGB CONC 32.1 g/dL (32.0-36.0); Mean Corpuscular Volume 93.6 fL (78.0-98.0); Mean Platelet Volume 6.8 fL (7.4-10.4); Platelet Count 346 thou/uL (130-400); RBC Distribution Width 15.3 % (11.5-14.5); Red Blood Cell (RBC) Count 3.55 mill/uL (4.20-5.40)
[2020-11-21] MEDS: Levothyroxine 150 MCG TAB PO SCH (06:31)
[2020-11-21] MEDS: Cholecalciferol 1,000 UNITS (25 MCG) TAB PO SCH (10:19)
[2020-11-21] MEDS: Prenatal Vitamin 1 TAB PO SCH (10:21)
[2020-11-21] MEDS: Multivitamin W/ Minerals 1 TAB PO SCH (10:21)
[2020-11-21] MEDS: Ferrous Gluconate 324 MG TAB PO SCH ×2 (10:21→20:28)
[2020-11-21] MEDS: Calcium Carbonate 600 MG + Vit D TAB PO SCH (10:22)
[2020-11-21] MEDS: Aspirin 81 mg Enteric Coated Tablet PO SCH ×2 (10:22→20:29)
[2020-11-21] MEDS: Bupropion 150 MG XL TAB PO SCH (10:22)
[2020-11-21] MEDS: Senokot S 8.6-50 MG TAB PO SCH ×2 (12:40→20:28)
[2020-11-21] MEDS: Atorvastatin Calcium 20 MG TAB PO SCH (20:29)
[2020-11-21] MEDS: CEFAZOLIN 2 GM in Premix Bag 1 BAG IVPB SCH ×2 (21:16→23:03)
[2020-11-21] MEDS ORDERED: CEFAZOLIN 2 GM in Premix Bag 1 BAG IVPB SCH (23:00)
[2020-11-22] MEDS: Sodium Chloride 0.9% 1,000 ML IV SCH (00:12)
[2020-11-22] MEDS: Ipratropium Bromide 2.5 ml Neb NEB SCH ×3 (03:02→13:43)
[2020-11-22] MEDS: Levothyroxine 150 MCG TAB PO SCH (05:27)
[2020-11-22 05:28] LABS: Hemoglobin 10.4 g/dL (12.0-16.0); Mean Corpuscular HGB CONC 31.8 g/dL (32.0-36.0); Mean Corpuscular Hemoglobin 29.6 pg (27.0-31.0); Mean Corpuscular Volume 92.9 fL (78.0-98.0); Mean Platelet Volume 6.6 fL (7.4-10.4); Platelet Count 352 thou/uL (130-400); RBC Distribution Width 15.3 % (11.5-14.5); Red Blood Cell (RBC) Count 3.52 mill/uL (4.20-5.40); White Blood Cell (WBC) Count 10.2 thou/uL (4.8-10.8)
[2020-11-22] MEDS: Aspirin 81 mg Enteric Coated Tablet PO SCH (09:47)
[2020-11-22] MEDS: Prenatal Vitamin 1 TAB PO SCH (09:47)
[2020-11-22] MEDS: Calcium Carbonate 600 MG + Vit D TAB PO SCH (09:48)
[2020-11-22] MEDS: Multivitamin W/ Minerals 1 TAB PO SCH (09:48)
[2020-11-22] MEDS: Ferrous Gluconate 324 MG TAB PO SCH (09:48)
[2020-11-22] MEDS: Cholecalciferol 1,000 UNITS (25 MCG) TAB PO SCH (09:48)
[2020-11-22] MEDS: Senokot S 8.6-50 MG TAB PO SCH (09:49)
[2020-11-22 10:11] LABS: Anion Gap 13 mmol/L (10-20); BUN (Urea Nitrogen) 9 mg/dL (9.8-20.1); Calc. Creatinine Clearance 134 mL/min (70-130); Carbon Dioxide 27 mmol/L (23-31); Chloride 100 mmol/L (98-107); Glucose 166 mg/dL (80-115); Sodium 136 mmol/L (136-145)
[2020-11-22] MEDS ORDERED: cefTRIAXone\\ROCEPHIN 2 GM in Sodium Chloride 0.9% 100 ML IVPB SCH (11:00)
[2020-11-22] MEDS: Bupropion 150 MG XL TAB PO SCH (15:43)
[2020-11-22] MEDS: CEFAZOLIN 2 GM in Premix Bag 1 BAG IVPB SCH (16:51)
[2020-11-22 17:42] VITALS: BP 143/73; TEMP 97.6
[2020-11-22] MEDS ORDERED: ceFAZolin Sodium/D5W 2 GM in Premix Bag 1 BAG IVPB SCH (22:00)
== END 2020-11-22 18:10 | disposition home health service (06) | DRG 464 ==
LOC: SURG A 11-17 06:40 → SJJU 11-17 12:14
PROVIDERS: ADMIT Orthopaedic Surgery; ATTEND Orthopaedic Surgery
PROC: 0JBM0ZZ Excision of Left Upper Leg Subcutaneous Tissue and Fascia, Open Approach (ICD-10-PCS; principal; 2020-11-18)
PROC: 02HV33Z Insertion of Infusion Device into Superior Vena Cava, Percutaneous Approach (ICD-10-PCS; 2020-11-21)
PROC: B548ZZA Ultrasonography of Superior Vena Cava, Guidance (ICD-10-PCS; 2020-11-21)
DX: T84.52XA Infection and inflammatory reaction due to internal left hip prosthesis, initial encounter (principal); L02.416 Cutaneous abscess of left lower limb; F41.9 Anxiety disorder, unspecified; Y83.8 Other surgical procedures as the cause of abnormal reaction of the patient, or of later complication, without mention of misadventure at the time of the procedure; E78.5 Hyperlipidemia, unspecified; B95.1 Streptococcus, group B, as the cause of diseases classified elsewhere; Z96.1 Presence of intraocular lens; I10 Essential (primary) hypertension; Z87.891 Personal history of nicotine dependence; Z79.890 Hormone replacement therapy; Z79.899 Other long term (current) drug therapy; Z98.51 Tubal ligation status; Z88.5 Allergy status to narcotic agent
CPT/HCPCS: 36415; 36569; 80048; 85027; 87070; 87077; 87205; 94640; C1751; J0690; J0696; J1100; J1170; J1644; J1885; J2405; J2704; J3010; J3370; J3490; J7050

== ENCOUNTER 2020-11-14 15:16 | Outpatient (CLI) | payer MEDICARE ==
[2020-11-14 16:19] LABS: #Basophils 0.1 10x3/uL (0.0-0.2); #Eosinphils 0.2 10x3/uL (0.0-0.5); #Monocytes 1.1 10x3/uL (0.0-1.1); #Neutrophils 10.3 10x3/uL (1.5-8.4); %Basophils 0.5 % (0.0-2.0); %Eosinophils 1.7 % (0.0-6.0); %Lymphocytes 14.5 % (18.0-47.0); %Monocytes 8.1 % (0.0-10.0); %Neutrophils 74.3 % (40.0-75.0); Hemoglobin 12.2 g/dL (12.0-15.5); Mean Corpuscular HGB CONC 31.9 g/dL (32.0-36.0); Mean Corpuscular Hemoglobin 28.7 pg (27.0-33.0); Mean Corpuscular Volume 89.9 fl (81.6-98.3); Mean Platelet Volume 9.3 fl (7.4-10.4); Platelet Count 435 10x3/uL (150-450); RBC Distribution Width 15.3 % (11.5-14.5); Red Blood Cell (RBC) Count 4.25 10x6/uL (3.90-5.03); White Blood Cell (WBC) Count 13.9 10x3/uL (3.5-10.5)
[2020-11-14 16:25] LABS: Prothrombin Time 11.5 sec (9.5-12.1)
[2020-11-14 16:28] LABS: Anion Gap 16 mmol/L (10-20); BUN (Urea Nitrogen) 12 mg/dL (9.8-20.1); CRP (Inflammatory) 3.54 mg/dL (= or < 0.5); Calc. Creatinine Clearance 0 mL/min (70-130); Calcium 10.3 mg/dL (7.8-10.44); Carbon Dioxide 22 mmol/L (23-31); Chloride 100 mmol/L (98-107); Glucose 96 mg/dL (80-115); Potassium 4.3 mmol/L (3.5-5.1); Sodium 134 mmol/L (136-145)
[2020-11-15 00:41] LABS: SARS-CoV-2 PCR by NAA Not Detected (NotDetected)
== END 2020-11-14 15:17 | disposition home or self-care (01) ==
LOC: LABBT 15:16
PROVIDERS: ATTEND Orthopaedic Surgery
DX: Z01.818 Encounter for other preprocedural examination (principal); T84.59XA Infection and inflammatory reaction due to other internal joint prosthesis, initial encounter; Z20.822 Contact with and (suspected) exposure to COVID-19
CPT/HCPCS: 71046; 80048; 85025; 85610; 85652; 86140; 86850; 86900; 86901; 87081; 93005; U0003; U0005; 93010